=== PATIENT | female | born 1990 | race Caucasian/White ===

== ENCOUNTER → 2018-01-18 09:18 | Outpatient (CLI) | payer OTHER, SELFPAY ==
[2018-01-18 11:00] LABS: Hematocrit 37.7 % (37-47); Hemoglobin 12.9 g/dl (12.0-15.0); Mean Corp Hgb Conc 34.2 g/gl (32-36); Mean Corpuscular Hgb 33.8 pg (27.0-32.0); Mean Corpuscular Volume 98.7 fL (81-99); Mean Platelet Vol. 11.2 fl (6.2-12.0); Platelet Count 169 K/mm3 (150-450); RBC Distribution Width CV 12.9 % (11.6-14.6); RBC Distribution Width SD 45.1 fl (35.1-43.9); Red Blood Count 3.82 M/mm3 (4.2-5.4); Scan Indicated on CBC? Y/N NO; White Blood Count 8.8 K/mm3 (4.4-11.0)
[2018-01-18 11:07] LABS: Glucose Challenge Gest 1H 50g 66 mg/dL (70-140)
== END ==
PROVIDERS: Visit Provider Obstetrics & Gynecology
DX: Z34.83 Encounter for supervision of other normal pregnancy, third trimester (principal); Z3A.00 Weeks of gestation of pregnancy not specified
CPT/HCPCS: 36415; 82950; 85027

== ENCOUNTER → 2018-03-15 09:50 | Outpatient (CLI) | payer OTHER, SELFPAY ==
[2018-03-15 12:34] LABS: Group B Strep DNA By PCR Negative (Negative); Internal Control PASS; Probe Check PASS; Specimen Processing Control PASS
== END ==
PROVIDERS: Visit Provider Obstetrics & Gynecology
DX: Z36.85 Encounter for antenatal screening for Streptococcus B (principal)
CPT/HCPCS: 87081; 87653

== ENCOUNTER 2018-03-29 10:25 | Outpatient (CLI) | payer OTHER, SELFPAY ==
[2018-03-29 10:33] VITALS: BMI 29.0
--- NOTE | 2018-03-29 19:00 | OB.TRI.NOTE ---
History of Present Illness Date of Service: 03/29/18 Was patient seen by the physician?: No Reason For Visit: NST Date of Service: 03/29/18 Final CLARK: 04/11/18 Final CLARK Source: US <20 weeks Gestational age: 39 Weeks and 1 Days History of Present Illness: 27yo G1 @ 38wga sent from office for scheduled NST for tachycardia. Home Medications Medication Instructions Recorded Vits [Prenatabs FA] 1 tablet PO DAILY 03/29/18 Allergies Sulfa (Sulfonamide Antibiotics) Allergy (Verified 03/29/18 10:34) Hives NST - FHR Rate Baby A Baseline: 145 Variability:: Moderate Accelerations:: 15 x 15 Decelerations:: None NST Reactive:: Yes FHR Category:: Category I Uterine Activity:: 2-3/10 min Impression/Plan 27yo G1 @ 38wga with reactive NST, Cat I FHR - tachycardia resolved. -d/c home
== END 2018-03-29 11:20 | disposition home or self-care (01) ==
LOC: WPOUT 10:29 → WP 10:30
PROVIDERS: Visit Provider Obstetrics & Gynecology
DX: O76 Abnormality in fetal heart rate and rhythm complicating labor and delivery (principal); Z3A.38 38 weeks gestation of pregnancy
CPT/HCPCS: 59025; 59050; 99218; G0378

== ENCOUNTER 2018-04-10 07:29 | Inpatient (IN) | payer OTHER, SELFPAY ==
[2018-04-10 07:19] VITALS: BMI 29.7
[2018-04-10 07:28] LABS: ROM Internal Control Test YES-OK TO RESULT pt. (Internal QC); ROM Patient Test POSITIVE (Negative)
[2018-04-10] MEDS: Lactated Ringers 1,000 ML 50 ML IV ×2 (07:55→13:18)
[2018-04-10 08:17] LABS: Hemoglobin 13.5 g/dl (12.0-15.0); Mean Corp Hgb Conc 34.6 g/gl (32-36); Mean Corpuscular Hgb 32.8 pg (27.0-32.0); Mean Corpuscular Volume 94.7 fL (81-99); Mean Platelet Vol. 11.4 fl (6.2-12.0); Platelet Count 205 K/mm3 (150-450); RBC Distribution Width CV 12.6 % (11.6-14.6); RBC Distribution Width SD 42.2 fl (35.1-43.9); Red Blood Count 4.12 M/mm3 (4.2-5.4)
[2018-04-10 08:19] LABS: Scan Indicated on CBC? Y/N NO
[2018-04-10] MEDS: Acetaminophen 325 MG Tablet PO (09:29)
[2018-04-10] MEDS: Ondansetron 4 MG/2 ML Vial IV (12:12)
--- NOTE | 2018-04-10 16:38 | PCM.PN.OB ---
Subjective: Uncomfortable with contractions. Objective: Afeb VSS. FHR tracing Cat 1. - Physical Exam General: Alert, Oriented x3, Cooperative, No apparent distress Abdomen: Gravid, Appropriate for Gestational Age Psych/Mental Status: Normal Affect Comment: CE lip Weight: 185 lb Body Mass Index (BMI) 29.7 Intake and Output for Last 24 Hours 04/08/18 04/09/18 04/10/18 23:59 23:59 23:59 Output Total 300 / 300 Balance -300 / -300 Laboratory Tests Past 24 Hrs 04/10/18 04/10/18 04/10/18 07:03 07:55 07:55 WBC 10.0 RBC 4.12 L Hgb 13.5 Hct 39.0 MCV 94.7 MCH 32.8 H MCHC 34.6 RDW 12.6 RDW Differential 42.2 Plt Count 205 MPV 11.4 Vag Amniotic Fld Detect POSITIVE H Blood Type A POSITIVE Antibody Screen NEGATIVE Medical Necessity - Tobacco Use Smoking Status: Never smoker Assessment/Plan Progressing in labor. Anticipate pushing soon. Cat 1 FHR tracing
[2018-04-10] MEDS: Mag Hydrox/Al Hydrox/Simeth 30 ML UDC PO (17:30)
[2018-04-10] MEDS: Oxytocin 30 units/NS 500 ml 30 UNITS/500 ML IV.SOLN 167 UNITS IV (18:07)
--- NOTE | 2018-04-10 18:30 | PCM.OB.VAG ---
Vaginal Delivery Maternal Presentation: Active Labor, Spontaneous Rupture of Membranes presents at 39w6d ega with SROM and contractions Amniotic Membrane Rupture Type: Spontaneous Rupture of Membrane time: 0500 Amniotic Fluid Description: Clear Final CLARK: 04/11/18 Final CLARK Source: US <20 weeks Gestational age: 39 Weeks and 6 Days Date of Procedure: 04/10/18 Pre-Operative Diagnosis: Labor Post-Operative Diagnosis: same Surgery/ Procedure Performed: Spontaneous Vaginal Delivery Type of Anesthesia: None Description of Procedure: Emeli progressed throughout the day to FD then pushed for about 2 hours to deliver a live female over an intact perineum. There was a tight nuchal cord that required clamping and cutting prior to delivery of the shoulders. The nose and mouth were suctioned at delivery. Pediatrics was called due to poor cry but baby had good HR and O2 saturations. The placenta was delivered spontaneously intact with a centrally located 3VC. The uterus contracted well. The vagina, cervix, and perineum were intact. Presentation: Vertex Placental Delivery Description: Spontaneous Placenta Disposition: [facility] Percentage of Placenta Abruption: 0 Cord Vessel Description: 3 Vessels Nuchal Cord Compression: With compression Cord Entanglement: Around neck x 1, tight Estimated Blood Loss: 400cc A gender: Female (1 minute): 4 (5 minute): 7 Episiotomy Description: None Laceration: None Medications given after delivery: IV Pitocin Complications: None
--- NOTE | 2018-04-10 18:43 | DCINST_ITS ---
Discharge Diet: No Restrictions Discharge Activity: Return to Normal Activity, May Drive, May Shower Return to work on:: 06/10/18 May shower in (days): 0 May resume sexual activity in: 4-6 weeks Call your doctor if your incision/area has: Sudden Increased Bleeding, Increased Pain/ Swelling, Foul Smelling Discharge Call your doctor if you observe: Fever of 101 or Higher, Inability to urinate, Inability to have a bowel movement, Using more than one pad per hour, Shortness of breath, Chest pain, Calf discomfort, Uncontrolled pain Cleanse incision/area with: Soap & Water Additional Instructions: If you experience any of the following, contact your healthcare provider. * Bleeding that soaks a pad every hour for 2 hours * Fever 100.4 or higher * Unrelieved incision or abdominal pain * Swelling, redness, discharge or bleeding from your incision or episiotomy site * Your incision begins to separate * Problems urinating (including inability to urinate or burning while urinating) . * Visual changes * Severe headache * Flu-like symptoms * Pain or redness in one of both of your breasts * Pain, warmth, tenderness or swelling in your legs, especially the calf area * Frequent nausea and vomiting * Symptoms of depression or anxiety If you experience any of the following, call 911 or go to the nearest Emergency Room. * Chest pain * Problems breathing * Seizure activity * Partial or complete paralysis of a body part, slurred speech, weakness or drooping of the face, or a sudden inability to walk or hold your balance Allergies/Adverse Reactions: Allergies Sulfa (Sulfonamide Antibiotics) Allergy (Verified 04/10/18 07:23) Hives Medications to take at Discharge Vits [Prenatabs FA ] 1 tablet PO DAILY 03/29/18 Ibuprofen [Ibu] 600 mg PO Q6H PRN PRN #30 tab 04/10/18 The following prescriptions were given: Ibuprofen [Ibu] 600 mg PO Q6H PRN PRN #30 tab PRN Reason: pain or cramping Please Follow Up With: Silvia Ricketts MD When: 6 weeks Primary Care Physician: Care Physician,No Primary [Primary Care Provider] - Proposed Discharge Date: 04/12/18
[2018-04-10] MEDS: Acetaminophen 500 MG Tablet 1000 MG PO (19:02)
[2018-04-10] MEDS: Methylergonovine 0.2 MG/ML Ampul IM (19:18)
[2018-04-11 00:13] VITALS: BP 117/73; PULSE 89; RESP 16; TEMP 36.7; O2SAT 95
[2018-04-11] MEDS: Ibuprofen 600 MG Tablet PO ×3 (00:15→20:40)
[2018-04-11] MEDS: 0.9% Saline Lock 10 ML Syringe IV (00:15)
[2018-04-11 04:13] VITALS: BP 102/55; PULSE 77; RESP 18; TEMP 36.6; O2SAT 95
[2018-04-11 06:03] LABS: Mean Corp Hgb Conc 34.4 g/gl (32-36); Mean Corpuscular Hgb 32.4 pg (27.0-32.0); Mean Corpuscular Volume 94.4 fL (81-99); Platelet Count 181 K/mm3 (150-450); RBC Distribution Width SD 44.2 fl (35.1-43.9); Red Blood Count 3.39 M/mm3 (4.2-5.4); White Blood Count 14.9 K/mm3 (4.4-11.0)
[2018-04-11 06:04] LABS: Scan Indicated on CBC? Y/N NO
--- NOTE | 2018-04-11 08:11 | PCM.PN.OB ---
Subjective: Breast feeding. Bleeding light. Fatigued. Objective: Afeb VSS Hgb stable - Physical Exam General: Alert, Oriented x3, Cooperative, No apparent distress Lungs: Clear to auscultation, Normal air movement Cardiovascular: Regular rate, Regular Rhythm Abdomen: Soft, Non Tender, Non-Distended, - - Fundus firm nontender Extremities: No edema Skin: No rashes Psych/Mental Status: Normal Affect Comment: Lochia light Vital Signs Temp Pulse Resp BP Pulse Ox 97.9 F 77 18 102/55 L 95 04/11/18 04:13 04/11/18 04:13 04/11/18 04:13 04/11/18 04:13 04/11/18 04:13 Oxygen Delivery Method Room Air Weight: 185 lb Body Mass Index (BMI) 29.7 Intake and Output for Last 24 Hours 04/09/18 04/10/18 04/11/18 23:59 23:59 23:59 Intake Total 1345 / 1345 Output Total 700 / 700 250 / 250 Balance 645 / 645 -250 / -250 Laboratory Tests Past 24 Hrs 04/10/18 04/10/18 04/11/18 07:55 07:55 05:50 WBC 10.0 14.9 H RBC 4.12 L 3.39 L Hgb 13.5 11.0 L Hct 39.0 32.0 L MCV 94.7 94.4 MCH 32.8 H 32.4 H MCHC 34.6 34.4 RDW 12.6 13.0 RDW Differential 42.2 44.2 H Plt Count 205 181 MPV 11.4 11.0 Blood Type A POSITIVE Antibody Screen NEGATIVE Medical Necessity - Tobacco Use Smoking Status: Never smoker Assessment/Plan Doing well on PP day#1. continue routine PP care.
[2018-04-11 10:00] VITALS: BP 105/55; PULSE 66; RESP 16; TEMP 36.7; O2SAT 98
[2018-04-11 14:00] VITALS: BP 99/57; PULSE 95; RESP 16; TEMP 37.1; O2SAT 99
[2018-04-11] MEDS: Prenatal Vits Tablet 1 TABLET PO (14:13)
[2018-04-11 20:29] VITALS: BP 105/60; PULSE 88; RESP 18; TEMP 36.7; O2SAT 96
[2018-04-11] MEDS: Senna/Docusate Sodium 1 Tablet PO (22:03)
[2018-04-12 01:49] VITALS: BP 104/59; PULSE 85; RESP 16; TEMP 36.6; O2SAT 97
[2018-04-12] MEDS: Acetaminophen 500 MG Tablet 1000 MG PO (02:01)
--- NOTE | 2018-04-12 06:56 | PCM.PN.OB ---
Subjective: No speicifc complaints. Bleeding light. Objective: Afeb VSS - Physical Exam General: Alert, Oriented x3, Cooperative, No apparent distress Lungs: Clear to auscultation, Normal air movement Cardiovascular: Regular rate, Regular Rhythm Abdomen: Soft, Non Tender, Non-Distended, - - Fundus firm nontender Extremities: No edema Skin: No rashes Neurological: Neuro grossly intact Psych/Mental Status: Normal Affect Comment: Lochia light Vital Signs Temp Pulse Resp BP Pulse Ox 97.9 F 85 16 104/59 L 97 04/12/18 01:49 04/12/18 01:49 04/12/18 01:49 04/12/18 01:49 04/12/18 01:49 Oxygen Delivery Method Room Air Weight: 185 lb Body Mass Index (BMI) 29.7 Intake and Output for Last 24 Hours 04/10/18 04/11/18 04/12/18 23:59 23:59 23:59 Intake Total 1345 / 1345 Output Total 700 / 700 250 / 250 Balance 645 / 645 -250 / -250 Medical Necessity - Tobacco Use Smoking Status: Never smoker Assessment/Plan Doing well on PP day#2. Cleared for discharge home today. Home going instructions and warnings given.
--- NOTE | 2018-04-12 06:58 | PCM.DC.SUM ---
Discharge Date and Diagnosis Date of Admission: 04/10/18 Date of Discharge: 04/12/18 - Primary Discharge Diagnosis s/p Hospital Course and Treatment Consultations 04/10/18 07:40 Consult: Anesthesia Routine Comment: Reason For Exam: LABOR Operations: None Procedures: - - Summary of Care Provided: The patient is a 27 year old F [admitted in active labor with SROM. Progressed to FD then pushed to deliver a live without complication. Post course unremarkable. Discharged home on PP day#2.] Discharge Diet: No Restrictions Discharge Activity: Return to Normal Activity, May Drive, May Shower Return to work on:: 06/10/18 May shower in (days): 0 May resume sexual activity in: 4-6 weeks Call your doctor if your incision/area has: Sudden Increased Bleeding, Increased Pain/ Swelling, Foul Smelling Discharge Call your doctor if you observe: Fever of 101 or Higher, Inability to urinate, Inability to have a bowel movement, Using more than one pad per hour, Shortness of breath, Chest pain, Calf discomfort, Uncontrolled pain Cleanse incision/area with: Soap & Water Home Medications: Medications to take at Discharge Vits [Prenatabs FA ] 1 tablet PO DAILY 03/29/18 Ibuprofen [Ibu] 600 mg PO Q6H PRN PRN #30 tab 04/10/18 Following Prescrptions Were Given to Patient: Ibuprofen [Ibu] 600 mg PO Q6H PRN PRN #30 tab PRN Reason: pain or cramping Primary Care Physician: Care Physician,No Primary [Primary Care Provider] - Please Follow Up With: Silvia Ricketts MD When: 6 weeks Disposition: Home Minutes spent on discharge:: 15 Patient Condition:: Good Medical Necessity - Tobacco Use Smoking Status: Never smoker Meaningful Use Info Meaningful Use Diagnoses (Choose all that apply): None applicable
[2018-04-12] MEDS: Ibuprofen 600 MG Tablet PO (08:01)
[2018-04-12] MEDS: Senna/Docusate Sodium 1 Tablet PO (08:01)
[2018-04-12] MEDS: Prenatal Vits Tablet 1 TABLET PO (08:01)
[2018-04-12 10:00] VITALS: BP 106/73; PULSE 89; RESP 16; TEMP 36.6
[2018-04-12 15:00] VITALS: BP 116/77; PULSE 113; RESP 18; TEMP 37.3
== END 2018-04-12 15:00 | disposition home or self-care (01) | DRG 775 ==
LOC: WPOUT 07:32 → WP 18:09
PROVIDERS: Admitting Provider Obstetrics & Gynecology; Visit Provider Obstetrics & Gynecology
DX: O69.1XX0 Labor and delivery complicated by cord around neck, with compression, not applicable or unspecified (principal); K21.9 Gastro-esophageal reflux disease without esophagitis; Z3A.39 39 weeks gestation of pregnancy; Z37.0 Single live birth
CPT/HCPCS: 59025; 59050; 84112; 85027; 86850; 86900; 99218; J7120; A4216; G0378; J2405

== ENCOUNTER 2018-04-14 18:35 | Outpatient (CLI) | payer OTHER, SELFPAY | END 2018-04-14 19:40 | disposition home or self-care (01) | LOC: WPOUT 18:50 → WP 18:52 | PROVIDERS: Visit Provider Obstetrics & Gynecology | DX: Z39.1 Encounter for care and examination of lactating mother (principal) ==

== ENCOUNTER → 2018-05-25 15:46 | Outpatient (CLI) | payer OTHER, SELFPAY ==
[2018-06-03 17:13] LABS: HPV APTIMA, High Risk Positive (Negative); HPV Reflexed? YES, CHARGE PATIENT
== END ==
PROVIDERS: Visit Provider Obstetrics & Gynecology
DX: R87.612 Low grade squamous intraepithelial lesion on cytologic smear of cervix (LGSIL) (principal)
CPT/HCPCS: 87624; 88175; G0145

== ENCOUNTER → 2018-06-18 16:45 | Outpatient (CLI) | payer OTHER, SELFPAY ==
--- NOTE | 2018-06-18 | IMM_PTH ---
PATIENT: ZACH ARAGON LOC: [facility] U#:[id number] AGE/SX: 35/F ROOM: RE06/18/[address]: Dr. Silvia Boyce MD : 1990 BED: DIS: SPEC #: [id number] RECD: 06/22/18 14:07 STATUS: VALENTINE REHarley #: [id number] KIRNA: 06/18/18 00:[address]: Silvia Perez DEPT: IMMUNOHISTOCHEMISTRY RECD BY: Yuki Gilmore Tissues: A - Uterine cervix, NOS Procedures: p16 (initial) KI-67 (add) PHYSICIAN & INSTITUTION [place] [id number] SPECIMEN INFORMATION: Tissue Source: A ? Cervical biopsy 6 o?clock Clinical Info: ASCUS, positive HR/HPV Specimen Number: [id number] CPT code: 88409, 42935 METHODOLOGY: Deparaffinized sections of prefer/formalin-fixed tissue or PAP/DQ stained slides are incubated with monoclonal/polyclonal antibodies/oligonucleotide probes. Localization is made via biotin free immunoperoxidase method. Appropriate controls are performed and reacted as expected. Results on target cell population are indicated in the following table: RESULTS: ANTIBODY / CLONE RESULT Block A P16 (E6H4) positive, patchy Ki-67 (30-9) positive, low These tests were developed and their performance characteristics determined by [facility]. They may not have been cleared or approved by the U.S. Food and Drug Administration. The FDA has determined that such clearance or approval is not necessary. INTERPRETATION: A. Cervix, 6 o?clock, biopsy: Mild squamous dysplasia. SJ:yobani 06/23/18
--- NOTE | 2018-06-18 | CER_PTH ---
PATIENT: ZAHC ARAGON LOC: [facility]#:[id number] AGE/SX: 35/F ROOM: RE06/18/[address]: Dr. Silvia Boyce MD : 1990 BED: DIS: SPEC #: [id number] RECD: 06/18/18 17:20 STATUS: VALENTINE JUAN #: [id number] KIRAN: 06/18/18 00:[address]: Silvia Perez DEPT: SURGICAL PATHOLOGY RECD BY: Farrah Fuller Tissues: A - Uterine cervix, NOS B - Uterine cervix, NOS C - Endocervical Procedures: Surgery Specimen Level IV HEADER OPERATION: Colposcopy PRE-OP DIAGNOSIS: LMP 06/06/18; 05/26/18 ASCUS, positive HR/HPV TISSUE SUBMITTED: A ? Cervical biopsy 6 o?clock, B - Cervical biopsy 3 o?clock, C - ECC MICROSCOPIC DIAGNOSIS A. 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 See comment. B. Cervix, 3 o?clock, biopsy: Fragment of benign endocervical mucosa and mucous. See comment. C. ECC: Scant fragments of benign endocervical epithelial cells and mucous, negative for dysplasia. Fragments of proliferative endometrium. SJ:rg 06/22/18 COMMENT A. Immunohistochemistry ([id number]) for surrogate HPV marker (p16) supports the above diagnosis. B. Transitional zone mucosa is not seen in the submitted specimen. MICROSCOPIC DESCRIPTION Slides are reviewed. GROSS DESCRIPTION A - Received in fixative is one container labeled with the patient's name and designated cervical biopsy 6 o'clock. The specimen consists of two irregular fragments of light hylton soft tissue that in aggregate measure 0.5 x 0.3 x 0.1 cm. The specimen is totally submitted in one cassette. B - Received in fixative is one container labeled with the patient's name and designated cervical biopsy 3 o'clock. The specimen consists of one irregular fragment of hylton soft tissue that measures 0.3 x 0.3 x 0.1 cm. Also present in the container are multiple fragments of mucoid tissue measuring in aggregate 0.5 x 0.5 x 0.1 cm. The specimen is totally submitted in one cassette. C - Received in fixative is one container labeled with the patient's name and designated ECC. The specimen consists of multiple fragments of hemorrhagic mucoid tissue that in aggregate measure 2 x 1.5 x 0.2 cm. The specimen is totally submitted in one cassette. / SJ:rg 06/21/18 TC:5 CPT: 66024 x3
== END ==
PROVIDERS: Visit Provider Obstetrics & Gynecology
DX: R87.610 Atypical squamous cells of undetermined significance on cytologic smear of cervix (ASC-US) (principal)
CPT/HCPCS: 88305; 88341; 88342

== ENCOUNTER → 2019-07-01 11:06 | Outpatient (CLI) | payer OTHER, SELFPAY ==
[2019-07-01 14:03] LABS: Chlamydia Trachomatis by PCR Negative (Negative); Neisserai gonorrhoeae by PCR Negative (Negative); Probe Check PASS; Sample Adequacy Control PASS; Specimen Processing Control PASS
== END ==
PROVIDERS: Visit Provider Obstetrics & Gynecology
DX: Z12.4 Encounter for screening for malignant neoplasm of cervix (principal); Z11.3 Encounter for screening for infections with a predominantly sexual mode of transmission; Z32.01 Encounter for pregnancy test, result positive
CPT/HCPCS: 87491; 87591; 88175; G0145

== ENCOUNTER → 2019-08-03 14:34 | Outpatient (CLI) | payer OTHER, SELFPAY ==
[2019-08-03 15:43] LABS: Absolute Lymphocyte Count 2.31 X10^3/uL (0.83-4.51); Absolute Neutrophil Count 5.1 X10^3/uL (2.0-7.7); Basophil# 0.03 X10^3/uL; Basophil% 0.4 % (0-1); Eosinophil# 0.09 X10^3/uL; Eosinophils% 1.1 % (0-5); Hematocrit 38.6 % (37-47); Hemoglobin 13.2 g/dL (12.0-15.0); Lymphocyte # 2.31 X10^3/ul (4.0); Lymphocyte % 27.8 % (19-41); Mean Corp Hgb Conc 34.2 g/dL (32-36); Mean Corpuscular Hgb 31.4 pg (27.0-32.0); Mean Corpuscular Volume 91.9 fL (81-99); Mean Platelet Vol. 11.3 fl (6.2-12.0); Monocyte# 0.73 X10^3/uL; Monocyte% 8.8 % (0-10); NRBC Flagged by Analyzer 0 % (0-5); Neutrophil # 5.09 X10^3/uL (2.7-7.7); Neutrophil % 61.3 % (47-70); Platelet Count 168 K/mm3 (150-450); RBC Distribution Width CV 13.1 % (11.6-14.6); RBC Distribution Width SD 43.3 fl (35.1-43.9); White Blood Count 8.3 K/mm3 (4.4-11.0)
[2019-08-03 15:46] LABS: Color, Urine Yellow (Yellow); Glucose, Dipstick Normal (Normal); Ketone-Dipstick Negative (Negative); Leukocyte Esterase-Dipstick Negative /ul (Negative); Nitrite-Dipstick Negative (Negative); Occult Blood-Urine Negative /ul (Negative); Protein-Dipstick Negative (Negative); Urine Bilirubin Dipstick Negative (Negative); Urine Clarity Clear (Clear); Urine Urobilinogen Normal (Normal); Urine pH 6.5 (5.0 - 8.0)
[2019-08-03 16:05] LABS: Thyroid Stim Hormone (TSH) 1.34 uIU/mL (0.358-3.74)
[2019-08-03 16:07] LABS: Amphetamine Urine VISTA NEGATIVE (<1000 ng/mL); Barbiturate Urine VISTA NEGATIVE (< 200 ng/mL); Benzodiazepine Urine VISTA NEGATIVE (< 200 ng/mL); Cocaine Urine VISTA NEGATIVE (< 300 ng/mL); Ecstacy Urine VISTA NEGATIVE (< 500 ng/mL); Methadone Urine VISTA NEGATIVE (< 300 ng/mL); PCP Urine VISTA NEGATIVE (< 25 ng/mL); THC Urine VISTA NEGATIVE (< 50 ng/mL); Vista UDS pH Range 6
[2019-08-04 10:54] LABS: HIV - WCH Non-Reactive (Nonreactive); Hepatitis B Surface Antigen Non-Reactive (Nonreactive); Hepatitis C Antibody Non-Reactive (Nonreactive); Rubella IgG 102.1 IU/mL; Vitamin D,25 Hydroxy 25.6 ng/mL (29.95-100.01)
[2019-08-05 02:06] LABS: Prenatal RPR NONREACTIVE (NONREACTIVE)
== END ==
PROVIDERS: Visit Provider Obstetrics & Gynecology
DX: Z34.81 Encounter for supervision of other normal pregnancy, first trimester (principal)
CPT/HCPCS: 36415; 80307; 81002; 82306; 84443; 85025; 86703; 86762; 86803; 87340

== ENCOUNTER → 2019-11-29 10:06 | Outpatient (CLI) | payer OTHER, SELFPAY ==
[2019-11-29 12:11] LABS: Hematocrit 38.4 % (37-47); Hemoglobin 12.7 g/dL (12.0-15.0); Mean Corp Hgb Conc 33.1 g/dL (32-36); Mean Corpuscular Hgb 30.9 pg (27.0-32.0); Mean Corpuscular Volume 93.4 fL (81-99); Mean Platelet Vol. 11.1 fl (6.2-12.0); Platelet Count 227 K/mm3 (150-450); RBC Distribution Width CV 12.4 % (11.6-14.6); RBC Distribution Width SD 42.8 fl (35.1-43.9); Red Blood Count 4.11 M/mm3 (4.2-5.4); White Blood Count 9.3 K/mm3 (4.4-11.0)
[2019-11-29 12:28] LABS: Glucose Challenge Gest 1H 50g 77 mg/dL (70-140)
[2019-11-29 12:43] LABS: Vitamin D,25 Hydroxy 33.3 ng/mL (29.95-100.01)
== END ==
PROVIDERS: Visit Provider Obstetrics & Gynecology
DX: Z34.83 Encounter for supervision of other normal pregnancy, third trimester (principal)
CPT/HCPCS: 36415; 82306; 82950; 85027

== ENCOUNTER → 2020-01-27 15:40 | Outpatient (CLI) | payer OTHER, SELFPAY | PROVIDERS: Visit Provider Obstetrics & Gynecology | DX: Z36.85 Encounter for antenatal screening for Streptococcus B (principal) | CPT/HCPCS: 87081 ==

== ENCOUNTER 2020-02-26 07:25 | Inpatient (IN) | payer OTHER, SELFPAY ==
[2020-02-26] VITALS (21 sets, daily range): BP systolic 110–140; BP diastolic 64–91; PULSE 73–96; RESP 16; TEMP 36.2–37.3; O2SAT 97; BMI 29.9
[2020-02-26] MEDS: Lactated Ringers 1,000 ML 50 ML IV (08:00)
[2020-02-26 08:16] LABS: Absolute Lymphocyte Count 2.34 X10^3/uL (0.83-4.51); Absolute Neutrophil Count 5.7 X10^3/uL (2.0-7.7); Basophil# 0.02 X10^3/uL; Basophil% 0.2 % (0-1); Eosinophil# 0.14 X10^3/uL; Eosinophils% 1.5 % (0-5); Hematocrit 35.5 % (37-47); Lymphocyte # 2.34 X10^3/ul (4.0); Lymphocyte % 25.4 % (19-41); Mean Corp Hgb Conc 33.8 g/dL (32-36); Mean Corpuscular Hgb 29.4 pg (27.0-32.0); Mean Platelet Vol. 11.8 fl (6.2-12.0); Monocyte# 0.98 X10^3/uL; Monocyte% 10.6 % (0-10); NRBC Flagged by Analyzer 0 % (0-5); Neutrophil # 5.68 X10^3/uL (2.7-7.7); Neutrophil % 61.8 % (47-70); Platelet Count 205 K/mm3 (150-450); RBC Distribution Width CV 13.7 % (11.6-14.6); RBC Distribution Width SD 42.4 fl (35.1-43.9); Red Blood Count 4.08 M/mm3 (4.2-5.4); White Blood Count 9.2 K/mm3 (4.4-11.0)
[2020-02-26] MEDS: Mag Hydrox/Al Hydrox/Simeth 30 ML UDC PO (08:48)
--- NOTE | 2020-02-26 08:57 | PCM.HP.OB ---
- Problem List (1) 41 weeks gestation of Status: Acute History Date of Admission: 02/26/20 Final CLARK: 02/19/20 Final CLARK Source: US <20 weeks Gestational age: 41 Weeks and 0 Days History of this : This is a 29 year-old, G [], P [], at 41 weeks gestational age. Allergies Sulfa (Sulfonamide Antibiotics) Allergy (Verified 02/26/20 07:41) Hives Home Medications: Home Medications Vits [Prenatabs FA ] 1 tablet PO DAILY 03/29/18 Cholecalciferol (VIT D3) [Vitamin D] 1,000 unit PO DAILY 02/26/20 Smoking Status: Never smoker Alcohol: None Number of Fetus(es): 1 NST - FHR Rate Baby A Baseline: 130 Variability:: Moderate Accelerations:: 15 x 15 Decelerations:: None NST Reactive:: Yes FHR Category:: Category I Uterine Activity:: Q2-5 irregular History Past Pregnancies: PRIOR DELIVERY HISTORY DEL DATE GEST LAB WT LB WT OZ TYPE ANES LABOR TX April 16 39 13 8 9 Vag Nitrous No 27 Dec 16 8 0 0 0 Vag None No Expected Infant Delivery Method: Spontaneous Vaginal Number of Visits: 12 Review of Systems Constitutional: Denies: Chills, Fever, Weight Change HEENT: Denies: Head Aches, Sinus Congestion, Sinus Drainage Cardiovascular: Denies: Chest Pain, Palpitations Respiratory: Denies: Cough, Shortness of breath at rest, Sputum production Gastrointestinal: Denies: Abdominal Pain, Nausea, Vomiting Genitourinary: Denies: Dysuria Musculoskeletal: Denies: Joint Pain, Joint Tenderness Skin: Denies: Rash, Wounds Neurological: Denies: Numbness, Tingling, Focal weakness Psychiatric: Denies: Anxiety, Depression, Homicidal Ideations, Suicidal Ideations Hematologic/ Lymphatic: Denies: Easy Bruising, Easy Bleeding Physical Exam Vitals: Vital Signs Temp Pulse BP Pulse Ox 98.2 F 96 123/72 H 97 02/26/20 08:32 02/26/20 08:32 02/26/20 08:32 02/26/20 08:31 General: Alert, Oriented x3, No apparent distress HEENT: Atraumatic, Normocephalic. Negative for: Thyromegaly, Lymphadenopathy Cardiovascular: Regular rate, Regular Rhythm Lungs: Clear to auscultation Abdomen: Bowel Sounds Present, Gravid Neurological: Deep Tendon Reflexes 2+/4 and Symmetrical, Neuro grossly intact TAG MACHINE OPERATOR: Normal external genitalia. Negative for: Vulvar lesions Estimated gestational size: Appropriate for gestational size Presentation: Cephalic Cervix Dilation (cm): 6 Station: -1 Effacement (%): 75 Assessment/Plan All Active Problems 41 weeks gestation of (Acute) A: This is a 29 year-old, G [3], P [1], at 41 weeks gestational age. IOL for postdates SVE /-1 soft, stretchy, midposition with bulging bag AROM clear fluid 0836 NST category I with FHR baseline 130 UC 2-5 minutes with pain 7/10 P: Wanted Nitrous, but with it being unavailable she was educated on IV Fentanyl and epidural options vs natural labor After AROM, to recheck SVE in 4 hours. If no change will start Pitocin Expect
--- NOTE | 2020-02-26 12:52 | PCM.PN.OB ---
Patient Problems: Active and Suspected Problems 41 weeks gestation of (Acute) Subjective: Feeling okay. Pain is still 7/10 with peak of contractions. Reports contractions Q3-5 minutes while up, but in bed only feeling them 5-7 minutes. Objective: VSS. FHR baseline 130, +accels, -decels, moderate variability, Category I. At one point [place] monitor changed and maternal heart rates. SVE 8/90/-1 - Physical Exam Vitals/I&O's: Vital Signs Temp Pulse BP Pulse Ox 97.2 F L 93 131/82 H 97 02/26/20 12:51 02/26/20 12:51 02/26/20 12:51 02/26/20 08:31 Weight: 84.368 kg Body Mass Index (BMI) 29.9 General: Alert, Oriented x3, Cooperative HEENT: Atraumatic, PERRLA, EOMI, Normocephalic Neck: Supple, No JVD, Negative Carotid Bruits Lungs: Clear to auscultation, Normal air movement Cardiovascular: Regular rate, No murmurs Abdomen: Bowel Sounds Present, Soft, Non Tender Extremities: No edema, Capillary Refill Less than 3 Seconds Skin: No rashes, No breakdown Musculoskeletal: No Tenderness to Palpation of Joints or Extremities Neurological: Cranial nerves II-XII grossly intact Psych/Mental Status: Normal Affect, Appropriate Laboratory Results 02/26/20 08:00: WBC 9.2, RBC 4.08 L, Hgb 12.0, Hct 35.5 L, MCV 87.0, MCH 29.4, MCHC 33.8, RDW Std Deviation 42.4, RDW Coeff of Isabell 13.7, Plt Count 205, MPV 11.8, Immature Gran % (Auto) 0.500, Neut % (Auto) 61.8, Lymph % (Auto) 25.4, [place] % (Auto) 10.6 H, Eos % (Auto) 1.5, Baso % (Auto) 0.2, Absolute Neuts (auto) 5.7, Absolute Lymphs (auto) 2.34, Nucleated RBC % 0 02/26/20 08:00: Blood Type A POSITIVE, Antibody Screen NEGATIVE Current Medications Acetaminophen (Tylenol) 325 - 650 mg PO Q4H PRN PRN PRN Reason: Pain Score 1-3/10 Al Hydroxide/Mg Hydroxide (Mylanta Ii) 15 - 30 ml PO Q4H PRN PRN PRN Reason: INDIGESTION Last Admin: 02/26/20 08:48 Dose: 30 ml Documented by: Citric Acid/Sodium Citrate (Bicitra) 30 ml PO X1 PRN PRN Reason: Section Fentanyl Citrate (Sublimaze (100mcg Ampule)) 25 - 50 mcg IV Q2H PRN PRN PRN Reason: Pain Score 4-10/10 Lactated Ringer's () 500 mls @ 999 mls/hr IV .Q31M PRN PRN Reason: Epidural Lactated Ringer's () 500 mls @ 999 mls/hr IV .Q31M PRN PRN Reason: Corrective Measures Lactated Ringer's () 1,000 mls @ 50 mls/hr IV .Q20H GRACIE Last Admin: 02/26/20 08:00 Dose: 50 mls/hr Documented by: Ondansetron HCl (Zofran) 4 mg IV Q4H PRN PRN PRN Reason: NAUSEA Prochlorperazine Edisylate (Compazine Iv) 10 mg IV Q6H PRN PRN PRN Reason: NAUSEA Sodium Chloride () 10 - 40 ml IV X1 PRN PRN Reason: SALINE FLUSH Medical Necessity - Tobacco Use Smoking Status: Never smoker Assessment/Plan All Active Problems 41 weeks gestation of (Acute) A: Active labor with irregular contraction pattern Making cervical change now /-1 FHR Category I AROM of forebag with clear fluid P: Continue to allow IOL with just AROM Will reassess in 2 hours for Pitocin if irregular contraction pattern continues and no cervical change Expect
--- NOTE | 2020-02-26 14:45 | PCM.PN.BLA ---
STROKE Vital Signs/Narrative: Vital Signs Temp Pulse BP 02/26/20 14:35 97.3 F L 81 122/79 H 02/26/20 13:27 97.3 F L 93 133/83 H 02/26/20 12:51 97.2 F L 93 131/82 H 02/26/20 11:38 97.2 F L 73 116/73
[2020-02-26] MEDS: Oxytocin 30 units/NS 500 ml 30 UNITS/500 ML IV.SOLN 334 UNITS IV (16:34)
--- NOTE | 2020-02-26 16:46 | OP.PCM_ITS ---
Problem List (1) 41 weeks gestation of Status: Acute Vaginal Delivery Maternal Presentation: Medically Indicated Induction - at 41wk Method of Induction: Amniotomy Medical Reason for Induction: Maternal Medical Condition: list: - 41.0wk Amniotic Membrane Rupture Type: Artificial Rupture of Membrane time: 0836 Amniotic Fluid Description: Clear Final CLARK: 02/19/20 Final CLARK Source: US <20 weeks Gestational age: 41 Weeks and 0 Days doctor who attended delivery (if requested by OB): Siena Harrison Date of Procedure: 02/26/20 Pre-Operative Diagnosis: IOL Post-Operative Diagnosis: S/P Surgery/ Procedure Performed: Spontaneous Vaginal Delivery Anesthesiologist: GRETCHEN Gillis CRNA Type of Anesthesia: None Description of Procedure: Patient had spontaneous urge to push and complete +1. Patient pushed well, but decels began with abnormal presentation felt. Couldn't rule out cord presentation with head at +2 station. Ceased pushing and called attending Dr. Kaufman to delivery. Air Compressor Operator called for standby. Assisted patient to pant breathe through contractions while heading to OR for a double setup. Staff in place upon Dr. Kaufman's arrival to OR. With one maternal push, infant face appeared in direct mentum anterior presentation. Dr. Kaufman able to assist patient in delivery of a male infant. was placed on the maternal abdomen and further attended by nursery personnel with bulb suction and stimulation. The cord was doubly clamped and cut by at 30 seconds of life. IV Pitocin started per protocol. First degree perineal laceration repaired by Dr. Kaufman with a 3.0 rapide. With gentle cord traction spontaneous delivery of placenta. Fundal massage given, firm and midline. On inspection placenta appeared to be fully intact with a three vessel cord. EBL 200. Sponge and needle count correct x2. Apgars 8/9. Placental Delivery Description: Spontaneous Placenta Disposition: [facility] Cord Vessel Description: 3 Vessels Cord Entanglement: None Estimated Blood Loss: 200 Infant A gender: Male (1 minute): 8 (5 minute): 9 Episiotomy Description: None Laceration: Midline, 1st degree - perineal
[2020-02-26] MEDS: Ibuprofen 600 MG Tablet PO (17:49)
[2020-02-26] MEDS: Methylergonovine 0.2 MG/ML Ampul IM (18:08)
[2020-02-27 04:00] VITALS: BP 129/80; PULSE 83; RESP 16; TEMP 37.2
[2020-02-27 08:00] VITALS: BP 116/82; PULSE 82; RESP 16; TEMP 36.6
[2020-02-27] MEDS: Senna/Docusate Sodium 1 Tablet PO (08:14)
--- NOTE | 2020-02-27 09:59 | DCINST_ITS ---
Discharge Diet: No Restrictions Discharge Activity: Return to Normal Activity, May not drive while taking narcotic pain medications., May Shower May resume sexual activity in: 4-6 weeks Additional Activity Instructions:: Nothing in the vagina for 4-6 weeks. You may return to work/school in 6 weeks. Call your doctor if your incision/area has: Continuous Slow Oozing, Sudden Increased Bleeding, Increased Pain/ Swelling, Increased Redness, Foul Smelling Discharge Additional Instructions: If you experience any of the following, contact your healthcare provider. * Bleeding that soaks a pad every hour for 2 hours * Fever 100.4 or higher * Unrelieved incision or abdominal pain * Swelling, redness, discharge or bleeding from your incision or episiotomy site * Your incision begins to separate * Problems urinating (including inability to urinate or burning while urinating). * Visual changes * Severe headache * Flu-like symptoms * Pain or redness in one of both of your breasts * Pain, warmth, tenderness or swelling in your legs, especially the calf area * Frequent nausea and vomiting * Symptoms of depression or anxiety If you experience any of the following, call 911 or go to the nearest Emergency Room. * Chest pain * Problems breathing * Seizure activity * Partial or complete paralysis of a body part, slurred speech, weakness or drooping of the face, or a sudden inability to walk or hold your balance Allergies/Adverse Reactions: Allergies Sulfa (Sulfonamide Antibiotics) Allergy (Verified 02/26/20 07:41) Hives Medications to take at Discharge Vits [Prenatabs FA ] 1 tablet PO DAILY 03/29/18 Cholecalciferol (VIT D3) [Vitamin D] 1,000 unit PO DAILY 02/26/20 Please Follow Up With: Jerri Phoenix CNM When: Call to make an appointment with your doctor in 6 weeks. If you have signs of depression call immediately for appointment. Primary Care Physician: Care Physician,No Primary [Primary Care Provider] - Test Results: Test results from this visit will be discussed in further detail at your follow- up appointment, if applicable.
--- NOTE | 2020-02-27 10:01 | PCM.PN.OB ---
Patient Problems: Active and Suspected Problems 41 weeks gestation of (Acute) Subjective: A little sore vaginally, but doing very well. Feeling good. Denies heavy bleeding. Reporting some minor issues with latching son for . Wants to see and discharge today. Objective: VSS. Fundus u/2, firm, midline. Lochia rubra moderate. - Physical Exam Vitals/I&O's: Vital Signs Temp Pulse Resp BP Pulse Ox 98 F 82 16 116/82 H 97 02/27/20 08:00 02/27/20 08:00 02/27/20 08:00 02/27/20 08:00 02/26/20 08:31 Weight: 84.368 kg Body Mass Index (BMI) 29.9 Intake and Output for Last 24 Hours 02/25/20 02/26/20 02/27/20 23:59 23:59 23:59 Intake Total 928.33 / 928.33 Balance 928.33 / 928.33 General: Alert, Oriented x3, Cooperative HEENT: Atraumatic, PERRLA, EOMI, Normocephalic Neck: Supple, No JVD, Negative Carotid Bruits Lungs: Clear to auscultation, Normal air movement Cardiovascular: Regular rate, No murmurs Abdomen: Bowel Sounds Present, Soft, Non Tender Extremities: No edema, Capillary Refill Less than 3 Seconds Skin: No rashes, No breakdown Musculoskeletal: No Tenderness to Palpation of Joints or Extremities Neurological: Cranial nerves II-XII grossly intact Psych/Mental Status: Normal Affect, Appropriate Laboratory Results 02/26/20 08:00: Blood Type A POSITIVE, Antibody Screen NEGATIVE Current Medications Acetaminophen (Tylenol) 1,000 mg PO Q8H PRN PRN PRN Reason: Pain Score 1-3/10 Bisacodyl (Dulcolax) 10 mg RECTAL UD PRN PRN Reason: If no BM Hydrocortisone (Hytone) 1 applic TOPICAL TID PRN PRN; Protocol PRN Reason: Discomfort Ibuprofen (Motrin) 600 mg PO Q6H PRN PRN PRN Reason: Pain Score 1-3/10 Last Admin: 02/26/20 17:49 Dose: 600 mg Documented by: Methylergonovine Maleate (Methergine) 0.2 mg IM X1 PRN PRN Reason: Excess bleeding/uterine atony Last Admin: 02/26/20 18:08 Dose: 0.2 mg Documented by: Ondansetron HCl (Zofran) 4 mg IV Q4H PRN PRN PRN Reason: Nausea Oxycodone HCl (Oxyir) 5 - 10 mg PO Q4H PRN PRN PRN Reason: Pain Score 4-10/10 Senna/Docusate Sodium (Senokot-S, Sahra-Colace) 1 - 2 tablet PO DAILY PRN PRN PRN Reason: Constipation Last Admin: 02/27/20 08:14 Dose: 2 tablet Documented by: Simethicone (Mylicon) 80 mg PO PCHS PRN PRN Reason: Indigestion/Stomach pain Sodium Chloride () 5 - 15 ml IV UD PRN PRN Reason: SALINE FLUSH Throat Lozenges (Dermoplast (Sp)) 1 applic TOPICAL 4X/DAY PRN PRN; Protocol PRN Reason: Pain/Inflammation Zolpidem Tartrate (Ambien (Generic)) 5 mg PO QHS PRN PRN PRN Reason: Insomnia Medical Necessity - Tobacco Use Smoking Status: Never smoker Assessment/Plan All Active Problems 41 weeks gestation of (Acute) A: Post vaginal delivery day #1 male son, will get circumcision today Perineal pain well controlled with Motrin and ice Normal involution and lochia Normal course P: Continue orders to see mother to help with latch To discharge today after 24 hours To call for 6wk appt or sooner for assistance
[2020-02-27 12:30] VITALS: BP 119/83; PULSE 92; RESP 16; TEMP 36.6
[2020-02-27 18:00] VITALS: BP 117/70; PULSE 95; RESP 16; TEMP 36.8
== END 2020-02-27 19:45 | disposition home or self-care (01) | DRG 807 ==
PROVIDERS: Admitting Provider Obstetrics & Gynecology; Visit Provider Obstetrics & Gynecology
DX: O48.0 Post-term pregnancy (principal); Z37.0 Single live birth; O70.0 First degree perineal laceration during delivery; Z3A.41 41 weeks gestation of pregnancy
CPT/HCPCS: 59025; 59050; 85025; 86850; 86900; 86901; 99218; J7120; G0378

== ENCOUNTER → 2020-04-11 | Outpatient (CLI) | payer OTHER, SELFPAY ==
[2020-02-26 07:33] VITALS: BMI 29.9
== END | disposition home or self-care (01) ==
PROVIDERS: Referring Provider Obstetrics & Gynecology; Visit Provider Obstetrics & Gynecology
DX: Z12.4 Encounter for screening for malignant neoplasm of cervix (principal)

== ENCOUNTER → 2021-04-01 08:08 | Outpatient (CLI) | payer OTHER, SELFPAY ==
[2020-02-26 07:33] VITALS: BMI 29.9
--- NOTE | 2021-04-01 08:09 | CT_ITS ---
STUDY: CT MAXILLOFACIAL SINUSES REASON FOR EXAM: Female, 30 years old. ANOSMIA RADIATION DOSAGE (If Supplied By Facility): CTDIvol = ( 33.06 ) mGy, DLP = ( 871.04 ) mGycm TECHNIQUE: The patient was scanned in a multi detector CT scanner. High resolution axial imaging was performed without the administration of intravenous contrast material. Sagittal and coronal images were reconstructed. Individualized dose optimization techniques were used for this CT. COMPARISON: None. FINDINGS: FRONTAL SINUSES: Normal aeration, without mucosal inflammatory disease. ETHMOIDAL SINUSES: Normal aeration, without mucosal inflammatory disease. MAXILLARY SINUSES: Normal aeration, without mucosal inflammatory disease. SPHENOIDAL SINUSES: Normal aeration, without mucosal inflammatory disease. There is patency of the bilateral maxillary infundibuli with normal uncinate processes, ethmoid bullae, and hiatus semilunaris. Normal bilateral middle turbinates. Normal bilateral inferior turbinates. There is a left sided nasal septal deviation with a left sided nasal septal spur. There is patency of the bilateral nasal airways. The visualized osseous structures are normal. The visualized bilateral orbital contents are normal. CT/Sinus/Facial Bone IMPRESSION: Nasal septal deviation with the left side with a left-sided nasal septal spur. Electronically Signed: Cem Reyes MD at 10:51 EDT , Service support ,
== END ==
PROVIDERS: Referring Provider Otolaryngology; Visit Provider Otolaryngology
DX: R43.0 Anosmia (principal)
CPT/HCPCS: 70486

== ENCOUNTER → 2021-10-30 09:37 | Outpatient (CLI) | payer OTHER, SELFPAY ==
--- NOTE | 2021-10-30 09:44 | RAD_ITS ---
STUDY: X-RAY - PELVIS REASON FOR EXAM: Female, 31 years old. PAIN TECHNIQUE: One view of the pelvis was obtained. COMPARISON: None. FINDINGS: There is a non-specific bowel gas pattern. Normal visualized soft tissue structures. Normal bilateral iliac wings, sacroiliac joints and visualized sacrum. Normal visualized bilateral superior and inferior pubic rami. Normal pubic symphysis. Normal ischial tuberosities. Normal visualized right femoral head. Normal right acetabulum. Normal right hip joint. Normal visualized left femoral head. Normal left acetabulum. Normal left hip joint. RAD/Pelvis 1 or 2 Views IMPRESSION: Normal x-ray examination of the pelvis. Electronically Signed: Jeronimo Perez MD at 16:52 EST , Service support ,
[2021-10-30 12:22] LABS: Erythrocyte Sedimentation Rate 8 mm/hr (0-30)
[2021-10-30 12:24] LABS: Absolute Lymphocyte Count 2.49 X10^3/uL (0.83-4.51); Absolute Neutrophil Count 5.5 X10^3/uL (2.0-7.7); Basophil# 0.04 X10^3/uL; Basophil% 0.5 % (0-1); Eosinophil# 0.05 X10^3/uL; Eosinophils% 0.6 % (0-5); Hematocrit 46.6 % (37-47); Hemoglobin 16.1 g/dL (12.0-15.0); Lymphocyte # 2.49 X10^3/ul (0.83-4.51); Lymphocyte % 28.3 % (19-41); Mean Corp Hgb Conc 34.5 g/dL (32-36); Mean Corpuscular Hgb 31.7 pg (27.0-32.0); Mean Corpuscular Volume 91.7 fL (81-99); Mean Platelet Vol. 11.5 fl (6.2-12.0); Monocyte# 0.71 X10^3/uL; Monocyte% 8.1 % (0-10); NRBC Flagged by Analyzer 0 % (0-5); Neutrophil # 5.48 X10^3/uL (2.7-7.7); Neutrophil % 62.2 % (47-70); Platelet Count 250 K/mm3 (150-450); RBC Distribution Width CV 12.2 % (11.6-14.6); RBC Distribution Width SD 40.9 fl (35.1-43.9); Red Blood Count 5.08 M/mm3 (4.2-5.4); White Blood Count 8.8 K/mm3 (4.4-11.0)
[2021-10-30 12:47] LABS: AST(SGOT) 17 U/L (15-37); Alanine Aminotransfer ALT/SGPT 33 U/L (13-56); Albumin, Serum 4.5 g/dL (3.2-5.0); Alkaline Phosphatase 61 U/L (45-117); Anion Gap 8 (5-15); BUN 13 mg/dL (7-18); CRP < 2.90 mg/L (0.0-3.0); Calcium,Total 9.7 mg/dL (8.5-10.1); Chloride 100 mmol/L (98-107); Creatinine, Serum 0.65 mg/dL (0.55-1.02); EST Glomerular Filtration Rate 112 mL/min (>60); Est Glom Filt Rate - Afr Amer 136 mL/min (>60); Globulin 4.3 g/dL (2.2-4.2); Glucose 73 mg/dL (74-106); Potassium 3.1 mmol/L (3.5-5.1); Protein, Total 8.8 g/dL (6.4-8.2); Rheumatoid Factor < 10.0 IU/mL (<15); Sodium Level 137 mmol/L (136-145)
[2021-10-30 13:17] LABS: Hepatitis B Surface Antibody Reactive; Hepatitis B Surface Antigen Non-Reactive (Nonreactive); Hepatitis C Antibody Non-Reactive (Nonreactive)
[2021-10-31 15:52] LABS: ANTINUCLEAR ANTIBODIES DIRECT Positive (Negative)
[2021-11-01 08:15] LABS: CCP IgG Antibodies 6 units (0-19)
== END ==
PROVIDERS: Referring Provider Internal Medicine Rheumatology; Visit Provider Internal Medicine Rheumatology
DX: L40.59 Other psoriatic arthropathy (principal); M21.41 Flat foot [pes planus] (acquired), right foot; Z87.81 Personal history of (healed) traumatic fracture
CPT/HCPCS: 36415; 72170; 80053; 85025; 85652; 86038; 86140; 86200; 86431; 86706; 86803; 87340

== ENCOUNTER → 2021-11-11 14:18 | Outpatient (CLI) | payer OTHER, SELFPAY ==
[2021-11-11 15:22] LABS: EXAGEN MAILED SPECIMEN
[2021-11-11 17:58] LABS: Color, Urine Yellow (Yellow); Glucose, Dipstick Normal (Normal); Ketone-Dipstick Negative (Negative); Leukocyte Esterase-Dipstick Negative /ul (Negative); Nitrite-Dipstick Negative (Negative); Occult Blood-Urine Negative /ul (Negative); Protein-Dipstick Negative (Negative); Urine Bilirubin Dipstick Negative (Negative); Urine Clarity Clear (Clear); Urine Urobilinogen Normal (Normal); Urine pH 6.5 (5.0 - 8.0)
[2021-11-11 18:40] LABS: Protein, Urine (Random) < 6.0 mg/dL (<11.9)
== END ==
PROVIDERS: Referring Provider Internal Medicine Rheumatology; Visit Provider Internal Medicine Rheumatology
DX: L40.59 Other psoriatic arthropathy (principal); R76.8 Other specified abnormal immunological findings in serum; M21.41 Flat foot [pes planus] (acquired), right foot; Z79.899 Other long term (current) drug therapy; Z87.81 Personal history of (healed) traumatic fracture
CPT/HCPCS: 81002; 82570; 84156

== ENCOUNTER 2022-01-06 14:16 | Outpatient (CLI) | payer BC, SELFPAY ==
[2022-01-06 17:46] LABS: Absolute Lymphocyte Count 2.43 X10^3/uL (0.83-4.51); Absolute Neutrophil Count 3.9 X10^3/uL (2.0-7.7); Basophil# 0.02 X10^3/uL; Basophil% 0.3 % (0-1); Eosinophil# 0.11 X10^3/uL; Eosinophils% 1.6 % (0-5); Hematocrit 38.8 % (37-47); Hemoglobin 13.7 g/dL (12.0-15.0); Lymphocyte # 2.43 X10^3/ul (0.83-4.51); Lymphocyte % 34.5 % (19-41); Mean Corp Hgb Conc 35.3 g/dL (32-36); Mean Corpuscular Hgb 33.3 pg (27.0-32.0); Mean Corpuscular Volume 94.4 fL (81-99); Mean Platelet Vol. 10.9 fl (6.2-12.0); Monocyte# 0.53 X10^3/uL; Monocyte% 7.5 % (0-10); NRBC Flagged by Analyzer 0 % (0-5); Neutrophil # 3.93 X10^3/uL (2.7-7.7); Neutrophil % 55.8 % (47-70); Platelet Count 195 K/mm3 (150-450); RBC Distribution Width CV 12.5 % (11.6-14.6); RBC Distribution Width SD 43.3 fl (35.1-43.9); Red Blood Count 4.11 M/mm3 (4.2-5.4)
[2022-01-06 18:49] LABS: AST(SGOT) 16 U/L (15-37); Alanine Aminotransfer ALT/SGPT 26 U/L (13-56); Albumin, Serum 3.9 g/dL (3.2-5.0); Alkaline Phosphatase 59 U/L (45-117); Anion Gap 7 (5-15); BUN 13 mg/dL (7-18); BUN/Creat Ratio 21.1 RATIO (10-20); Calcium,Total 9.1 mg/dL (8.5-10.1); Chloride 102 mmol/L (98-107); Creatinine, Serum 0.62 mg/dL (0.55-1.02); EST Glomerular Filtration Rate 120 mL/min (>60); Est Glom Filt Rate - Afr Amer 145 mL/min (>60); Globulin 3.8 g/dL (2.2-4.2); Glucose 68 mg/dL (74-106); Potassium 3.1 mmol/L (3.5-5.1); Protein, Total 7.7 g/dL (6.4-8.2); Sodium Level 138 mmol/L (136-145)
== END 2022-01-06 23:59 | disposition home or self-care (01) ==
PROVIDERS: Referring Provider Internal Medicine Rheumatology; Visit Provider Internal Medicine Rheumatology
DX: L40.59 Other psoriatic arthropathy (principal); R76.8 Other specified abnormal immunological findings in serum; L40.8 Other psoriasis; M21.41 Flat foot [pes planus] (acquired), right foot; Z79.899 Other long term (current) drug therapy; Z87.81 Personal history of (healed) traumatic fracture
CPT/HCPCS: 36415; 80053; 85025

== ENCOUNTER → 2022-08-20 | Outpatient (CLI) | payer BC, SELFPAY ==
[2022-08-28 16:16] LABS: HPV APTIMA, High Risk Negative (Negative)
== END | disposition home or self-care (01) ==
LOC: LABSPEC 14:04
PROVIDERS: Visit Provider Student in an Organized Health Care Education/Training Program
DX: Z12.4 Encounter for screening for malignant neoplasm of cervix (principal)
CPT/HCPCS: 87624; 88175; G0145

== ENCOUNTER → 2025-03-14 | Outpatient (CLI) | payer BC, SELFPAY ==
[2025-03-16 12:08] LABS: QNTFERON TB Mitogen Value > 10.00 IU/mL (.); QNTFERON TB Nil Value 0.02 IU/mL (.); QNTFERON TB1+ Ag Value 0.03 IU/mL (.); QNTFERON TB2+ Ag Value 0.03 IU/mL (.); QNTIFERON TB Positive Criteria Negative (Negative)
== END | disposition home or self-care (01) ==
LOC: MTLAB 13:59
PROVIDERS: Referring Provider Dermatology Pediatric Dermatology; Visit Provider Dermatology Pediatric Dermatology
DX: L40.0 Psoriasis vulgaris (principal); L40.59 Other psoriatic arthropathy; Z79.899 Other long term (current) drug therapy
CPT/HCPCS: 36415; 86480

== ENCOUNTER 2025-06-25 23:31 | Emergency (ER) | payer BC, SELFPAY ==
[2025-06-25 23:33] VITALS: BP 157/96; PULSE 69; RESP 16; TEMP 36.8; O2SAT 100; BMI 24.9
--- NOTE | 2025-06-25 23:55 | EKG12_ITS ---
Test Reason : DYSRHYTHMIA Blood Pressure : */* mmHG Vent. Rate : 71 BPM Atrial Rate : 71 BPM P-R Int : 122 ms QRS Dur : 96 ms QT Int : 382 ms P-R-T Axes : 73 68 38 degrees QTcB Int : 415 ms Normal sinus rhythm with sinus arrhythmia Normal ECG Confirmed by JAMES JOYA, ADRIANNA ([id number]), web editor EMERSON MUKHERJEE ([id number]) on 06/26/2025 1:04:13 PM Referred By: Confirmed By: ADRIANNA RAMIREZ MD
--- NOTE | 2025-06-25 23:56 | CT_ITS ---
PROCEDURE: STROKE CTA HEAD AND NECK W/CON 06/26/2025 REASON FOR EXAM: LEFT-SIDED NUMBNESS TECHNIQUE: STROKE CTA HEAD AND NECK W/CON Multiplanar Sagittal and Coronal images were obtained. CONTRAST: Isovue 370 VOLUME: 99 mL One or more dose reduction techniques were used (e.g., Automated exposure control, adjustment of the mA and/or kV according to patient size, use of iterative reconstruction technique). RADIATION DOSE SUMMARY: CTDlvol: 82 mGy DLP: 1347 mGycm COMPARISON: No FINDINGS: No abnormal brain densities. No intracranial hemorrhage. No hydrocephalus or midline shift. No acute scalp or skull pathology. Clear sinuses, mastoid air cells, middle ear cavities. Unremarkable orbits. Lung apices are clear. Unremarkable superior mediastinum. Neck soft tissues show no acute findings. No abnormal brain enhancement. Unremarkable thoracic arch. The common carotid arteries, extracranial internal carotid arteries, and vertebral arteries are widely patent. No stenosis, dissection, or aneurysm. Intracranial arteries are widely patent. No stenosis, dissection or aneurysm. Dural venous sinuses are patent. CT/STROKE CTA Head AND Neck W/Con IMPRESSION: No acute cervical or intracranial arterial pathology. No thrombosis, stenosis, dissection or aneurysm. Patent dural venous sinuses. Reading Location: [place] [id number]
--- NOTE | 2025-06-25 23:57 | ED.VIS.STROK ---
HPI History of Present Illness Chief Complaint: Numb/Ting Informant: patient and spouse/S.O. Narrative Narrative: 35-year-old female presenting with left-sided numbness and tingling that started last night a little more than 24 hours ago before she went to bed, progressively worse throughout the day today. Involves her left face, left upper extremity, left lower extremity. She states this morning in anglican she had to sit down because she felt like her leg was a little weak on the left. She has not experienced weakness or trouble walking otherwise. She recently was on prednisone, because she developed a red splotchy very itchy rash the day after she went swimming, although nobody else who swim developed the rash when she had no symptoms the day that she swam. She was put on Benadryl and some prednisone, she took 4 days of the prednisone but did not like the way it made her feel so she stopped taking it and the last dose was the day before yesterday. She is otherwise healthy. No other new neurologic symptoms include vision changes, trouble speaking, confusion. PFSH PFSH Medical History no medical history no medical history Allergy/AdvReac Type Severity Reaction Status Date / Time Sulfa (Sulfonamide Allergy Hives Verified 06/25/25 23:33 Antibiotics) Family History no significant family his Surgical History no surgical history Social History Smoking Status: Never smoker ROS ROS ED Constitutional Constitutional ED: Denies chills or fever(s) Eyes Eyes: Denies change in vision or diplopia ENT ENT ED: Denies rhinorrhea or sore throat Cardiovascular Cardiovascular: Denies chest pain or palpitations Respiratory/Chest Respiratory/Chest: Denies cough or dyspnea Gastrointestinal Gastrointestinal: Denies abdominal pain, diarrhea, nausea or vomiting Genitourinary Genitourinary ED: Denies dysuria or hematuria Musculoskeletal Musculoskeletal: Denies back pain or neck pain Integumentary Reports pruritus and rash; Denies abscess Neurologic Neurologic: Reports paresthesias LUE and LLE; Denies headache(s) or weakness Psychiatric Psychiatric: Denies anxiety or suicidal thoughts EXAM Physical Exam Const Vital Signs: 06/25/25 23:33 06/26/25 00:10 06/26/25 00:39 Temperature 98.2 F 98 F Temperature Source Oral Oral Pulse Rate 69 70 Respiratory Rate 16 15 Blood Pressure 157/96 H 114/56 L Blood Pressure Mean 116 75 Pulse Ox 100 99 100 Oxygen Delivery Method Room Air Room Air Room Air 06/26/25 01:32 Temperature Temperature Source Pulse Rate 69 Respiratory Rate 16 Blood Pressure 116/79 Blood Pressure Mean 91 Pulse Ox 98 Oxygen Delivery Method Room Air Positive well nourished and well developed General Appearance ED: well developed and NAD HEENT Reports moist mucous membranes normocephalic and atraumatic Eyes PERRL and EOMs intact bilaterally Neck full ROM and supple Resp normal respiratory effort and clear to auscultation bilaterally Cardio regular rate, regular rhythm and no murmurs GI non-tender and non-distended Auscultation: normoactive bowel sounds Palpation: soft Back/Spine no CVA tenderness General Back: other FROM Extremity normal to inspection General Extremety ED: Negative for edema, pulses abnormal or tenderness General Extremity: Negative for edema or pulses abnormal Neuro oriented x3 and CN's II-XII intact bilaterally Neuro Narrative: No gross sensory loss but decreased sensation left entire face without a facial droop, left upper extremity and left lower extremity without weakness in either. No dysmetria. No Curtis inattention. Normal gait without ataxia or objective weakness. Sensorium / Orientation: awake and alert Motor Exam: strength 5/5 throughout Psych mental status grossly normal Skin no rashes or lesions noted and no wounds MDM MDM MDM Narrative Medical decision making narrative: Cystoscopy patient is just been on 4 days of prednisone and not feeling well, it makes the most sense that the symptoms should be related. However, the numbness is interestingly just on the left side of her body which does not correlate with a reaction to a medication, and brings into the differential primary GAS TESTER etiologies. Certainly the more emergent of those are vascular in nature, and although she is outside of the 24-hour window for a stroke alert/intervention and outside of thrombolytic window, CT angiography of the head and neck were obtained in order to evaluate for the possibility of an emergent vascular situation, I reviewed the images and the report which I agree with it is negative and normal. Certainly other primary neurologic GAS TESTER issues are in the differential such as MS, which I am not able to rule in or rule out here in the ER at this time. Prior to obtaining imaging and EKG which appears normal, we did also do a blood sugar since that can mimic neurologic problems, it was 77 normal, her electrolytes are normal her blood counts are normal, and her troponin is normal as expected. She has had a little bit of a headache, she states it feels similar to the day or 2 prior to her menstrual cycle starting which she is expecting, she has had no nausea, vomiting, photophobia, but I am giving her a dose of Reglan to see if that helps any of this given that migraine would be in the differential as well. The Reglan did not really help any of the numbness. Her electrolytes came back showing a low bicarb, she has had no recent diarrhea and she has no reason to be recently dehydrated. The significance of this is unknown and it is unclear if that could be causing her numbness and tingling. Giving her a liter of fluid, and after that I think stable to be discharged home with close outpatient follow-up. Of note on reevaluation without specifically treating it her blood pressure is 116/79 and the rest of her vital signs are normal. I discussed with she and her at length they are comfortable with that plan. Lab Data Attestation: I reviewed the patient's lab results. Labs: Laboratory Results - last 24 hr 06/26/25 00:08 WBC 8.8 RBC 4.38 Hgb 14.4 Hct 41.9 MCV 95.7 MCH 32.9 H MCHC 34.4 RDW Std Deviation 42.5 RDW Coeff of Isabell 12.1 Plt Count 192 MPV 10.5 Immature Gran % (Auto) 0.500 Neut % (Auto) 43.7 L Lymph % (Auto) 38.8 [place] % (Auto) 9.7 Eos % (Auto) 6.7 H Baso % (Auto) 0.6 Absolute Neuts (auto) 3.9 Absolute Lymphs (auto) 3.43 Nucleated RBC % 0 PT 13.1 INR 1.0 APTT 28.0 Sodium 138 Potassium 4.3 Chloride 103 Carbon Dioxide 20.8 L Anion Gap 14 BUN 13 Creatinine 0.70 Estim Creat Clear Calc 105.01 Est GFR (MDRD) Non-Af 116 BUN/Creatinine Ratio 18.9 Glucose 94 Calcium 9.2 Troponin T High Sens < 6 Radiography Diagnostic Testing: Clinical Impression(s) from Imaging Studies Head/Neck CTA 06/25/25 23:56 IMPRESSION: No acute cervical or intracranial arterial pathology. No thrombosis, stenosis, dissection or aneurysm. Patent dural venous sinuses. Reading Location: [place] [id number] Rhythm Strip Rhythm Strip: Sinus Rhythm Rate: 71 Ectopy: None EKG Initial EKG: Attestation: I personally reviewed and interpreted this EKG as follows: Interpretation: Sinus Rhythm and No Acute Injury Pattern Comments: Nml axis & intervals; nml EKG Discharge Plan Triage Chief Complaint: Numb/Ting ED Provider: Joel Rubio Dx/Rx/DC Orders Clinical Impression: Left sided numbness, Urticaria Instructions: ED Paraesthesias Primary Care Provider: Care Physician,No Primary Referrals: Doctor,Your [Non-Staff] - As soon as possible Print Language: Montserratian Disposition Disposition: Home, Self Care NIHSS NIHSS 1a. Level of Consciousness: 0 - Alert; keenly responsive 1b. LOC Questions: 0 - Answers BOTH questions correctly 1c. LOC Commands: 0 - Performs BOTH tasks correctly 2. Best Gaze: 0 - Normal 3. Visual: 0 - No visual loss 4. Facial Palsy: 0 - Normal symmetrical movements 5a. Left Arm: 0 - No drift; arm holds 90 (or 45) degrees for full 10 seconds 5b. Right Arm: 0 - No drift; arm holds 90 (or 45) degrees for full 10 seconds 6a. Left Le - No drift; leg holds 30-degree position for full 5 seconds 6b. Right Le - No drift; leg holds 30-degree position for full 5 seconds 7. Limb Ataxia: 0 - Absent 8. Sensory: 1 - [id number] sensory loss; 9. Best Language: 0 - No aphasia; normal 10. Dysarthria: 0 - Normal 11. Extinction and Inattention: 0 - No abnormality Total: 1 Stroke Questions Stroke Team Activated: No (Outside of 24 hours)
--- OUTSIDE RECORDS SUMMARY | 2025-06-25 23:59 | XMS RPT_ITS | CCD ---
Author Organization [facility] Care Team Providers Care Agency Legal Counsel Name Role Phone Oberhauser, Tone Unavailable Unavailable Oberhauser, Tone L Unavailable Unavailable MIRIAM HOPE Attending Unavailable SYSTEM, PROVIDER NOT IN Referring Unavaila ble OBERHAUSER, TONE Primary Care Unavailable Oberhauser, Tone Primary Care Provider Odilia Heath Unavailable Unavailable Jose A FONTANEZ Ash Unavailable Unavailable Oberhauser DO Tone Unavailable Unavailable Oberhauser, Tone L Unavailable Unavailable Jose A Ash L Unavailable Unavailable OBERHAUSER, TONE Primary Care Unavailable KRUPA CORONA Attending Unavailable Unavailable Primary Care Provider Unavailabl e Unavailable Primary Care Provider Unavailabl e Care Physician, No Primary Primary Care Provider Unavailable Andrade JOYA, Dr. Romero Attending Provider Dr. Heather Zafar MD Referring Provider TIKI SANTIAGO Admitting Unavailable TIKI SANTIAGO Attending Unavailable TIKI SANTIAGO Primary Care Unavailable Heather Zafar Referring Unavailable Heather Zafar Attending Unavailable Care Physician, No Primary Primary Care Unava ilable Joel Rubio Attending Unavailable Care Physician, No Primary Primary Care Unava ilable Allergies Allergy Classification Reported Allergen(s) Allergy Type Date of Onset Reaction(s) Facility Sulfonamides (antibiotic) (1 source) Sulfonamides (Antibiotic) Drug Allergy [facility] [address] Work Phone: (5 sources) Sulfonamides (Antibiotic) Allergy to drug (finding) [facility] Work Phone: (6 sources) Clindamycin; Translations: [Unknown] Drug Allergy 1 [facility] (3 sources) Sulfonamides (Antibiotic) Allergy to substance 0 [facility] (3 sources) Sulfamethoxazole; Translations: [SULFAMETHOXAZOLE ] Drug Allergy 1 [facility] (1 source) Sulfonamides (Antibiotic) Drug allergy (disorder) 5 [facility] Repository Medications Current Medications Medication Drug Class(es) Dates Sig (Normalized) Sig (Original) calcium carbonate 600 mg / cholecalciferol 125 unt oral tablet (2 sources) Vitamin D Calcium-Cholecal cifer ol, D3, 600-125 mg-unit tab Take by mouth. Active Comment on above: Take by mouth. Calcium Carbonate / vitamin D3 (2 sources) CALCIUM CARBONATE/VITAMIN D3 (CALCIUM 600 + D ORAL) Take by mouth twice daily. Active CALCIUM CARBONAT E/VITAMIN D3 (CALCIUM 600 + D ORAL) Take by mouth twice daily. 0 Active Comment on above: Take by mouth twice daily. doxycycline monohydrate 100 mg oral tablet (2 sources) Tetracycline-class Drug Start : 02-07 take 1 tablet by mouth twice daily at mealtime doxycycline monohydrate 100 mg tablet TAKE 1 TABLET BY MOUTH TWICE DAILY - TAKE WITH FOOD 02/08/2024 Active Comment on above: TAKE 1 TABLET BY [place] TWICE DAILY - TAKE WITH FOOD 1 ml medroxyPROGESTERone acetate 150 mg/ml prefilled syringe (2 sources) Progestin Start : 03-02 medroxyPROGESTERone (DEPO-PROVERA) 150 mg/mL Syrg Inject 1 mL intramuscularly every 12 weeks. 1 Syringe 4 03/02/2013 Active Comment on above: Inject 1 mL intramus cularly every 12 weeks. metroNIDAZOLE 7.5 mg/ml topical cream (2 sources) Nitroimidazole Antimicrobial Start : 02-07 metroNIDAZOLE 0.75 % cream APPLY TOPICALLY TWICE DAILY NEEDED - APPLY TO AFFECTED AREA ON FACE NEEDED FOR RASH 02/08/2024 Active Comment on above: APPLY TOPICALLY TWIC E DAILY NEEDED - APPLY TO AFFECTED AREA ON FACE NEEDED FOR RASH Multivitamin capsule (2 sources) take 1 capsule by mouth once daily Multivitamin capsule Take 1 capsule by mouth once daily. Active take 1 capsule by mouth once devon ly Multivitamin capsule Take 1 capsule by mouth once daily. 0 Active Comment on above: Take 1 capsule by mo ut once daily. Vit,[id number]-Pyio c (Prenatabs Fa) 1 TABLET tablet (3 sources) Start: 03-29-2018 take 1 tablet by mouth once daily Vit,Lwel18-Ipce-Ugf ic (Prenatabs Fa) 1 TABLET tablet Active 1 {tbl} PO DAILY March 29, 2018 12:00am Start: 03-29-2018 take 1 tablet by [place] th once daily Vit,Vgfr63-Cpuv-Uxslf (Prenatab s Fa) 1 TABLET tablet Active 1 TABLET PO DAILY March 28, 2018 11:00pm Start: 03-29-2018 take 1 tablet by [place] once daily Vit,Sxjm03-Rllk-Dgjez (Prenatab s Fa) 1 TABLET tablet Active 1 TABLET PO DAILY March 29, 2018 12:00am VIT/IRON FUM/FOLIC AC ( VITAMIN ORAL) (2 sources) VIT/IRO N FUM/FOLIC AC ( VITAMIN ORAL) Take by mouth. Active VIT/IRO N FUM/FOLIC AC ( VITAMIN ORAL) Take by mouth. 0 Active Comment on above: Take by mouth. valACYclovir 1000 mg oral tablet (1 source) Herpesvirus Nucleoside Analog DNA Polymerase Inhibitor, Herpes Simplex Virus Nucleoside Analog DNA Polymerase Inhibitor, Herpes Zoster Virus Nucleoside Analog DNA Polymerase Inhibitor Start: 4 End: 4 take 1 tablet by mouth three times daily valACYclovir (VALTREX) 1 gram tablet Indications: Herpes zoster without complication Take 1 tablet by mouth three times a day for 7 days. 21 tablet 0 02/24/2024 03/02/2024 Active Comment on above: Take 1 tablet by [place] th three times a day for 7 days. Completed/Discontinued Medications Medication Drug Class(es) Dates Sig (Normalized) Sig (Original) ascorbic acid 500 mg chewable tablet (8 sources) Vitamin C Start: 07-12-2020 Vitamin C Oral Tablet Chewable Refills: 0 Oberhauser DO, Tone Start : 12-Jul-2020 Active ascorbic acid (V ITAMIN C ORAL) Take by mouth. Active ascorbic acid (V ITAMIN C ORAL) Take by mouth. 0 Active Comment on above: Take by mouth. B Complex Oral Tablet (5 sources) Start: 07-12-2020 B Complex Oral Tablet Refills: 0 Oberhauser DO, Tone Start : 12-Jul-2020 Active B Complex Oral Tablet (1 source) Start: 07-12-2020 B Complex Oral Tablet Refills: 0 Tone Paula DO Start : 12-Jul-2020 Active biotin 1 mg oral tablet (6 sources) Start: 07-12-2020 Biotin 1000 MCG Oral Tablet Refills: 0 Tone Paula DO Start : 12-Jul-2020 Active cholecalciferol 0.05 mg oral capsule (9 sources) Vitamin D Start: 07-12-2020 Vitamin D3 50 MCG (2000 UT) Oral Capsule Refills: 0 Tone Paula DO Start : 12-Jul-2020 Active Start: 02-26-2020 take 1 tablet by [place] th once daily Cholecalciferol (Vitamin D3) 1,000 UNIT tablet Active 1000 U PO DAILY February 26, 2020 12:00am cranberry preparation 125 mg oral tablet (6 sources) Non-Standardized Food Allergenic Extract, Non-Standardized Plant Allergenic Extract Start: 07-12-2020 Cranberry 125 MG Oral Tablet Refills: 0 Tone Paula DO Start : 12-Jul-2020 Active Multi-Vitamin Oral Tablet (5 sources) Start: 07-12-2020 Multi-Vitamin Oral Tablet Refills: 0 Tone Paula DO Start : 12-Jul-2020 Active Multi-Vitamin Oral Tablet (1 source) Start: 07-12-2020 Multi-Vitamin Oral Tablet Refills: 0 Tone Paula DO Start : 12-Jul-2020 Active predniSONE 10 mg oral tablet (1 source) Start: 08-17-2020 predniSONE 10 MG (21) Oral Tablet Therapy Pack TAKE 1 MG (21) Other take as directed, oral taper Quantity: 1 Refills: 0 Ash Naranjo DO Start : 17-Aug-2020 Active 21 Tablet Pack Problems Active Problems Problem Classification Problem Date Documented Da te Episodic/Chronic Abdominal pain (6 sources) Epigastric pain; Translations: [Abdominal pain, epigastric] Episodic Other connective tissue disease (6 sources) Radial styloid tenosynovitis; Translations: [Radial styloid tenosynovitis] Episodic Other inflammatory condition of skin (1 source) Psoriasis vulgaris; Translations: [Psoriasis vulgaris] Onset: 03-20-2025 Chronic Other non-traumatic joint disorders (5 sources) Pain in wrist; Translations: [Pain in joint, forearm] Episodic Other non-traumatic joint disorders (1 source) Bilateral wrist pain; Translations: [Bilateral wrist pain] Other screening for suspected conditions (not mental disorders or infectious disease) (1 source) Encounter for screening for malignant neoplasm of cervix; Translations: [Encounter for screening for malignant neoplasm of cervix] Onset: 2025 Episodic Other upper respiratory infections (1 source) Sore throat symptom; Translations: [Acute pharyngitis, unspecified] 08-30-2024 Episodic Residual codes; unclassified (3 sources) Gestation period, 41 weeks; Translations: [41 weeks gestation of ] 02-26-2020 Episodic Urinary tract infections (6 sources) Recurrent urinary tract infection; Translations: [Urinary tract infection, site not specified] Episodic Viral infection (1 source) Herpes zoster without complication; Translations: [Zoster without complications] 02-24-2024 Episodic Past or Other Problems Problem Classification Problem Date Documented Da te Episodic/Chronic NEGATED: Highlighted row has not occurred!Residual codes; unclassified (20 sources) Disease Episodic Results Test Name Value Interpretation Reference Range Facility THIN PREP (Tressa) PAP WITH HP V REFLEXon 04-28-2025 THIN PREP (Tressa) PAP WITH HPV REFLEX Normal [facility] Comment on above: Result Comment: _THIN PREP (Adult) PAP w HPV REFLEX_ Performed By: #### [id number] #### [facility],[address] [place] [id number] Quantiferon TB-Gold+on 03-16 QFT MITOGEN JERRY > 10.00 Normal . [facility] Comment on above: Performed By: #### [id number] #### [facility] [place], [address] QFT NIL VALUE 0.02 IU/mL Normal . [facility] Comment on above: Performed By: #### [id number] #### [facility] [address] [place], [address] QFT TB GOLD+ Comment Normal . [facility] Comment on above: Result Comment: QuantiFERON-TB Gold Plus is a qualitative indirect test for M tuberculosis infection (including disease) and is intended for use in conjunction with risk assessment, radiography, and other medical and diagnostic evaluations. The QuantiFERON-TB Gold Plus result is determined by subtracting the Nil value from either TB antigen (Ag) value. The Mitogen tube serves as a control for the test. Performed By: #### [id number] #### [facility] [address] [facility]. [place], [place], [id number] QFT TB POS CRIT Negative Normal Negative [facility] Comment on above: Result Comment: No response to M tubercu losis antigens detected. Infection with M tuberculosis is unlikely, but high risk individuals should be considered for additional testing (ATS/IDSA/CDC Clinical Practice Guidelines, 2017). The reference range is an Antigen minus Nil result of <0.35 IU/mL. The specimen received for QuantiFERON testing was incubated by the ordering institution. Specific procedures outlined in our Directory of Services and in the package insert for the QuantiFERON Gold (In Tube) test must be followed to enable for proper stimulation of cells for the production of interferon gamma. Chemiluminescence immunoassay methodology Performed at: [facility] [id number] [employer] Floor Person: Ced Higgins PhD, Phone: [phone] Performed By: #### L [id number] #### [facility] [address] [facility] [place], [address] QFT TB1+ AG JERRY 0.03 IU/mL Normal . [facility] Comment on above: Performed By: #### [id number] #### [facility] [address] [place], [address] QFT TB2+ AG JERRY 0.03 IU/mL Normal . [facility] Comment on above: Performed By: #### [id number] #### [facility] [address] [facility] [place], [address] M. tuberculosis tuberculin s zain IFN-g Ql (Bld)Ordered By: Heather Zafar on 03-14-2025 TB Test (QFT) Antigen 1 0.03 IU/mL . [facility] Quantiferon-TB Gold Plus concha tOrdered By: Heather Zafar on 03-14-2025 TB Test (QFT) Comment . [facility] Comment on above: QuantiFERON-TB Gold Plus is a qualitativ e indirect test forM tuberculosis infection (including disease) and isintended for use in conjunction with risk assessment,radiography, and other medical and diagnostic evaluations.The QuantiFERON-TB Gold Plus result is determined bysubtracting the Nil value from either TB antigen (Ag)value. The Mitogen tube serves as a control for the test. TB Test (QFT) Antigen 2 0.03 IU/mL . [facility] TB Test (QFT) Mitogen > 10.00 IU/mL . [facility] TB Test (QFT) Nil 0.02 IU/mL . [facility] TB Test (QFT) Positive Criteria Negative Negative [facility] Comment on above: No response to M tuberculosis antigens d etected.Infection with M tuberculosis is unlikely, but high riskindividuals should be considered for additional testing(ATS/IDSA/CDC Clinical Practice Guidelines, 2017). Thereference range is an Antigen minus Nil result of <0.35IU/mL.The specimen received for QuantiFERON testing was incubatedby the ordering institution. Specific procedures outlinedin our Directory of Services and in the package insert forthe QuantiFERON Gold (In Tube) test must be followed toenable for proper stimulation of cells for the productionof interferon gamma. Chemiluminescence immunoassaymethodologyPerformed at: [facility] [id number] Director: Ced Higgins PhD, Phone: [phone] Andrew 08-30-2024 [facility] Office Visit (UCWSTR ) EMELI MCINTYRE ([id number]) 1990 F Date Time Provider Department 08/30/24 7:45 AM [facility] During your visit today, we recorded the following information about you: Temperature Pulse Respiration Blood pressure 97.6 degrees 79/minute 16/minute 112/78 Weight 67.1 kg Hemanth Denny APRN.FINISH SANDER 08/30/2024 9:04 AM Signed CC: Patient presents with: Ear Pain: Left ear pain and sore throat x 1 day HPI: Emeli Mcintyre is a 34 year old female who presents to the office with complaint of sore throat and ear symptoms since this morning. Symptoms are staying the same. Associated symptoms includes ear pain. Denies fever, nausea, vomiting , and diarrhea. Treatments tried include nothing so far. with no relief of symptoms. Sick contacts: unknown. History of asthma, frequent episodes of bronchitis, chronic bronchitis, bronchiectasis or COPD: No Smoker: No Seasonal/environmental allergies: No The ROS is otherwise negative. The patient's pmh, medications, allergies, and past visits are reviewed. PHYSICAL EXAM: BP 112/78 Pulse 79 Temp 36.4 ?C (97.6 ?F) (Tympanic) Resp 16 Wt 67.1 kg (147 lb 14.9 oz) LMP 07/05/2017 SpO2 96% General appearance: alert, cooperative, pleasant, in no acute distress Head: Normocephalic Eyes: EOM's intact, conjunctiva pink and moist, no icterus, sclera white, non-injected Ears: Right ear: External ear/canal- Normal, TM - clear with good landmarks. Left ear: External ear/canal- Normal, TM - clear with good landmarks Oropharynx:mild erythema, without exudates present Neck:mild cervical adenopathy Heart: Negative. RRR without obvious murmur, gallop, or rubs. No ectopy. Lungs: clear to auscultation, without rales or wheeze, good air exchange PAST MEDICAL HISTORY Diagnosis Date Impetigo Lactose intolerance MRSA (methicillin resistant staph aureus) culture positive PMH - PAST MEDICAL HISTORY OF 07/22/07 normal color vision PAST SURGICAL HISTORY Procedure Laterality Date EXTRACTION, ERUPTED TOOTH OR EXPOSED ROOT (ELEVATION AND/OR FORCEPS REMOVAL) 05/19/2010 [place] teeth ALLERGIES Bactrim [Sulfamethoxazole] and Clindamycin MEDICATIONS doxycycline monohydrate 100 mg tablet TAKE 1 TABLET BY MOUTH TWICE DAILY - TAKE WITH FOOD metroNIDAZOLE 0.75 % cream APPLY TOPICALLY TWICE DAILY NEEDED - APPLY TO AFFECTED AREA ON FACE NEEDED FOR RASH Calcium-Cholecalciferol, D3, 600-125 mg-unit tab Take by mouth. ascorbic acid (VITAMIN C ORAL) Take by mouth. CALCIUM CARBONATE/VITAMIN D3 (CALCIUM 600 + D ORAL) Take by mouth twice daily. VIT/IRON FUM/FOLIC AC ( VITAMIN ORAL) Take by mouth. Multivitamin capsule Take 1 capsule by mouth once daily. (Patient not taking: Reported on 02/26/2021 ) medroxyPROGESTERone (DEPO-PROVERA) 150 mg/mL Syrg Inject 1 mL intramuscularly every 12 weeks. (Patient not taking: Reported on 02/26/2021 ) FAMILY HISTORY Problem Relation Age of Onset Diabetes Father age 47 year. type 1 ME other (arrythemia [Other]) Father Diabetes Paternal Uncle other (eye problems [Other]) Other maternal side other (congestive heart failure [Other]) Maternal Grandfather other (renal cancer [Other]) Maternal Grandfather Hypertension Mother Glaucoma Mother Asthma Brother Social History Tobacco Use Smoking status: Never Smokeless tobacco: Never Substance Use Topics Alcohol use: No Drug use: No ASSESSMENT/PLAN: 1. Sore throat - ICD9: 462, ICD10: J02.9 - STREP A MOLECULAR (POC)- neg Just over the counter medication at this time. . Potential red flag symptoms discussed with the patient. Reviewed appropriate action plan to take if red flag symptoms occur. Patient agreeable to treatment plan. Hemanth Denny APRN.FINISH SANDER Allergies As of Date: 08/30/2024 Noted Allergy Reaction BACTRIM (SULFAMETHOXAZOLE) 10/13/2011 4 - Hives CLINDAMYCIN 10/13/2011 4 - Hives Date Reviewed: 08/30/2024 Reviewed by: Jonelle Montes LPN - Fully Assessed Reason for Visit: Ear Pain [817] Cmt: Left ear pain and sore throat x 1 day Primary Visit Diagnosis:Sore throat [J02.9] Order(s):STREP A MOLECULAR (POC) [3378737] Order #: [id number] STREP A MOLECULAR (POC) [2080668] Order #: [id number]. #:[id number] Prescriptions as of 08/30/2024 - doxycycline monohydrate 100 mg tablet TAKE 1 TABLET BY MOUTH TWICE DAILY - TAKE WITH FOOD - metroNIDAZOLE 0.75 % cream APPLY TOPICALLY TWICE DAILY NEEDED - APPLY TO AFFECTED AREA ON FACE NEEDED FOR RASH - Calcium-Cholecalciferol, D3, 600-125 mg-unit tab Take by mouth. - ascorbic acid (VITAMIN C ORAL) Take by mouth. - VIT/IRON FUM/FOLIC AC ( VITAMIN ORAL) Take by mouth. - Multivitamin capsule Take 1 capsule by mouth once daily. - medroxyPROGESTERone (DEPO-PROVERA) 150 mg/mL Syrg Inject (more content not included)... Normal [facility] STREP A MOLECULAR (POC)on Procedural Control Valid [facility] Strep A (POCT) Negative Negative [facility] CNOVon 02-24-2024 [facility] Office Visit (UCWSTR ) EMELI MCINTYRE ([id number]) 1990 F Date Time Provider Department 02/24/24 7:30 AM [facility] During your visit today, we recorded the following information about you: Temperature Pulse Respiration Blood pressure 97.6 degrees 76/minute 18/minute 112/78 Weight 66 kg Amanuel Gr APRN.CNP 02/24/2024 7:48 AM Signed Subjective HPI HPI Emeli Archer Francisco Javier is a 33 year old female who presents today for CC of painful rash right arm. This started 2 days ago. Has tried nothing for relief. Symptoms are worsened by nothing. Risk factors hx of shingles. Denies chronic disease. Denies possibility of being . .Patient presents with: Rash: Painful rash on right arm x 5 days PAST MEDICAL HISTORY Diagnosis Date Impetigo Lactose intolerance MRSA (methicillin resistant staph aureus) culture positive PMH - PAST MEDICAL HISTORY OF 07/22/07 normal color vision PAST SURGICAL HISTORY Procedure Laterality Date EXTRACTION, ERUPTED TOOTH OR EXPOSED ROOT (ELEVATION AND/OR FORCEPS REMOVAL) 05/19/2010 [place] teeth ALLERGIES Bactrim [Sulfamethoxazole] and Clindamycin MEDICATIONS doxycycline monohydrate 100 mg tablet TAKE 1 TABLET BY MOUTH TWICE DAILY - TAKE WITH FOOD metroNIDAZOLE 0.75 % cream APPLY TOPICALLY TWICE DAILY NEEDED - APPLY TO AFFECTED AREA ON FACE NEEDED FOR RASH Calcium-Cholecalciferol, D3, 600-125 mg-unit tab Take by mouth. ascorbic acid (VITAMIN C ORAL) Take by mouth. VIT/IRON FUM/FOLIC AC ( VITAMIN ORAL) Take by mouth. Multivitamin capsule Take 1 capsule by mouth once daily. (Patient not taking: Reported on 02/26/2021 ) medroxyPROGESTERone (DEPO-PROVERA) 150 mg/mL Syrg Inject 1 mL intramuscularly every 12 weeks. (Patient not taking: Reported on 02/26/2021 ) CALCIUM CARBONATE/VITAMIN D3 (CALCIUM 600 + D ORAL) Take by mouth twice daily. FAMILY HISTORY Problem Relation Age of Onset Diabetes Father age 47 year. type 1 ME other (arrythemia [Other]) Father Diabetes Paternal Uncle other (eye problems [Other]) Other maternal side other (congestive heart failure [Other]) Maternal Grandfather other (renal cancer [Other]) Maternal Grandfather Hypertension Mother Glaucoma Mother Asthma Brother Social History Tobacco Use Smoking status: Never Smokeless tobacco: Never Substance Use Topics Alcohol use: No Drug use: No Review of Systems Constitutional: Negative for fever and malaise/fatigue. Objective Blood pressure 112/78, pulse 76, temperature 36.4 ?C (97.6 ?F), temperature source Tympanic, resp. rate 18, weight 66 kg (145 lb 8.1 oz), last menstrual period 07/05/2017, SpO2 98%, unknown if currently . Physical Exam Constitutional: General: She is not in acute distress. Appearance: She is not toxic-appearing or diaphoretic. HENT: Head: Normocephalic and atraumatic. Pulmonary: Effort: Pulmonary effort is normal. No accessory muscle usage or respiratory distress. Skin: Neurological: Mental Status: She is alert and oriented to person, place, and time. ASSESSMENT/PLAN: 1. Herpes zoster without complication - ICD9: 053.9, ICD10: B02.9 Treat with valtrex Discussed contagiousness F/u with pcp for worsening or continued s/s. - VALACYCLOVIR 1 GRAM TABLET Amanuel Gr APRN.FINISH SANDER Allergies As of Date: 02/24/2024 Noted Allergy Reaction BACTRIM (SULFAMETHOXAZOLE) 10/13/2011 4 - Hives CLINDAMYCIN 10/13/2011 4 - Hives Date Reviewed: 02/24/2024 Reviewed by: Amanuel Gr APRN.FINISH SANDER - Fully Assessed Reason for Visit: Rash [1087] Cmt: Painful rash on right arm x 5 days Primary Visit Diagnosis:Herpes zoster without complication [B02.9] Order(s):valACYclovir (VALTREX) 1 gram tabletTake 1 tablet by mouth three times a day for 7 days.Disp: 21 tabletRfl: 0 Prescriptions as of 02/24/2024 - doxycycline monohydrate 100 mg tablet TAKE 1 TABLET BY MOUTH TWICE DAILY - TAKE WITH FOOD - metroNIDAZOLE 0.75 % cream APPLY TOPICALLY TWICE DAILY NEEDED - APPLY TO AFFECTED AREA ON FACE NEEDED FOR RASH - valACYclovir (VALTREX) 1 gram tablet Take 1 tablet by mouth three times a day for 7 days. - Calcium-Cholecalciferol, D3, 600-125 mg-unit tab Take by mouth. - ascorbic acid (VITAMIN C ORAL) Take by mouth. - VIT/IRON FUM/FOLIC AC ( VITAMIN ORAL) Take by mouth. - Multivitamin capsule Take 1 capsule by mouth once daily. - medroxyPROGESTERone (DEPO-PROVERA) 150 mg/mL Syrg Inject 1 mL intramuscularly every 12 weeks. - CALCIUM CARBONATE/VITAMIN D3 (CALCIUM 600 + D ORAL) Take by mouth twice daily. Problem List As Of Date: 02/24/2024 (None) Prescriptions ordered this encounter Disp Refills Start End VALACYCLOVIR 1 GRAM TABLET 21 t* 0 02/24/2024 03/02/2024 Route: ORAL Sig: Take 1 tablet by mouth three times a day for 7 days. (more content not included)... Normal [facility] Cervical or vagninal specime n microscopic examination by cytology stain (reported ason 08-20-2022 Cytology report Cyto stain Doc (Cvx/Vag) Comment . [facility] Work Phone: Comment on above: The Pap smear is a screening test design ed to aid in thedetection of premalignant and malignant conditions of theuterine cervix. It is not a diagnostic procedure andshould not be used as the sole means of detecting cervicalcancer. Both false-positive and false-negative reports dooccur. Detection in cervical specim en of any of human papilloma virus (HPV) 16, 18, 31, 33,on 08-20-2022 HPV 16+18+31+33+35+3 9+45+51+52+56+58 +59+66+68 DNA Probe+sig amp Ql (Cvx) Negative Negative [facility] Work Phone: Comment on above: This nucleic acid amplification test det ects fourteen high-risk HPV types (16,18,31,33,35,39,45,51,52,56,58,59,66,68)without differentiation.Performed at: - [facility] [id number] Director: Hali Parnell MD, Phone: [phone] at: = - [facility] [id number] Director: Hali Parnell MD, Phone: [phone] Laboratory - Cytologyon 08-01 Salv[employer] Winder And Inspector Cyto stain Nom (Cvx/Vag) [ID] Comment . [facility] Work Phone: Comment on above: Lyn Brown, Gas Well Drilling Manager (ASCP) Laboratory - Miscellaneous t estson 08-20-2022 Service comment (Unsp spec) [Interp] Comment . [facility] Work Phone: Comment on above: This liquid based ThinPrep(R) pap test w as screened withthe use of an image guided system. Service comment (Unsp spec) [Interp] . . [facility] Work Phone: No Panel Informationon 08-20 Pathology report final diagnosis Narrative Comment . [facility] Work Phone: Comment on above: NEGATIVE FOR INTRAEPITHELIAL LESION OR M ALIGNANCY. XR FOOT RIGHT 3+ VIEWS (YUMIKO MCCLENDON)on 05-21-2022 XR FOOT RIGHT 3+ VIEWS (STANDARD) EXAMINATION: XR FOOT RIGHT 3+ VIEWS (STANDARD) 05/21/2022 7:59 am HISTORY: ORDERING SYSTEM PROVIDED HISTORY: twisted with Hx of arthritis, TECHNOLOGIST PROVIDED HISTORY: Injury/Trauma Reason for exam: Right lateral foot pain Cancer History: unk Surgery, RadiationHistory: ukn Encounter Type: Initial Mechanism of injury: Rolled right foot yesterday resulting in lateral right foot pain ORDERING SYSTEM PROVIDED DIAGNOSIS CODES: COMPARISON: None. FINDINGS: No acute fracture or dislocation. Intact joint spaces. Unremarkable soft tissues. IMPRESSION: No acute right foot abnormality. Workstation ID: [id number] Dictated by: SHAYLA YORK on ThuMay 21, 2022 8:08:16 AM EDT Transcribed by: SHAYLA YORK on ThuMay 21, 2022 8:08:16 AM EDT Finalized by: SHAYLA YORK on ThuMay 21, 2022 8:08:16 AM EDT [facility] Comment on above: Order Comment: Injury/Trauma or Illness? :Injury/Trauma How long have you had these symptoms (acute/chronic)?:Acute Reason for exam?:Right lateral foot pain History of cancer?:unk Surgeries, chemotherapy, or radiation?:ukn Type of Exam?:Initial Mechanism of injury?:Rolled right foot yesterday resulting in lateral right foot pain Established Visit (Orthopaed ic Surgery)on 08-17-2020 Established Visit (Orthopaedic Surgery) Diagnoses/Problems Assessed Pain in both wrists (719.43) (M25.531,M25.532) Orders Pain in both wrists Start: predniSONE 10 MG (21) Oral Tablet Therapy Pack; TAKE 1 MG (21) Other take as directed, oral taper Provider Impressions Assessment - bilateral wrist pain Plan?this is a very complicated situation. Patient has had no improvement in her wrist pain despite therapy. I am not sure where the pain is coming from. Her work-up with regards to rheumatologic conditions was negative. Her EMG was negative. She continues to have pain. I would like to try an oral steroid Dosepak. Her stomach issues seem to have resolved and so we will see if this provides her some relief of her wrist pain. I will call her in 2 weeks to evaluate how she is doing. This note has been created with voice recognition software. Please be aware that there may be grammatical or contextual errors due to the use of the software. Chief Complaint PT IS HERE FOR 6 WK FU ON KATHY WRIST PAIN S/P OT. STATES PAIN DEPENDS ON ACTIVITY PAIN IS ON THE UPPER SIDE OF THE HAND ON BOTH HANDS AND ACROSS THE WRIST, WHEN DOING A LOT OF TYPING AND FOLDING OF CLOTHES EFFECTS IT A LOT. 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 Patient has undergone a course of physical therapy with a hand therapist. She has had no improvement of her pain symptoms and no improvement of her tingling sensations. She also underwent EMG of the bilateral upper extremities which did not show any nerve entrapment in the cervical elbow or wrist regions. She continues to have pain. This is significantly exacerbated by activity. Is improved by rest. She is very frustrated she has had no improvement and no change in her symptoms. Her stomach issues have resolved. Review of Systems Constitutional: no fever, no chills, not feeling tired, no recent weight gain and no recent weight loss. ENT: no nosebleeds. Cardiovascular: no chest pain. Respiratory: no shortness of breath and no cough. Gastrointestinal: no abdominal pain, no nausea, no vomiting and no diarrhea. Musculoskeletal: arthralgias. Integumentary: no rashes and no skin wound. Neurological: no headache. Psychiatric: no depression and no sleep disturbances. Endocrine: no muscle weakness and no muscle cramps. Hematologic/Lymphatic: no swollen glands and no tendency for easy bruising. All other systems have been reviewed and are negative for complaint. Active Problems Problems Acute epigastric pain (789.06,338.19) (R10.13) Pain in both wrists (719.43) (M25.531,M25.532) Tenosynovitis, de Quervain (727.04) (M65.4) Past Medical History Problems History of Frequent UTI (599.0) (N39.0) Surgical History Problems History of Colonoscopy History of [place] tooth extraction Family History Mother Family history of LTG (low tension glaucoma) of cirrhosis at 52, alcoholic Father Family history of Controlled type 2 diabetes mellitus with stage 3 chronic kidney disease, without long-term current use of insulin at 47, not sure if it was overdose or ME Child Family history of Healthy child Brother Family history of Healthy adult Other Family history of diabetes mellitus (V18.0) (Z83.3) Family history of hypertension (V17.49) (Z82.49) Family history of mental disorder (V17.0) (Z81.8) Social History Problems Minimum alcohol consumption No illicit drug use Non-smoker (V49.89) (Z78.9) Occasional caffeine consumption Allergies Medication Sulfa Drugs Recorded By: Pilar Clay; 07/12/2020 10:10:25 AM Current Meds Medication NameInstruction B Complex Oral Tablet Biotin 1000 MCG Oral Tablet Cranberry 125 MG Oral Tablet Multi-Vitamin Oral Tablet Vitamin C Oral Tablet Chewable Vitamin D3 50 MCG (1999) Oral Capsule Vitals Vital Signs Recorded: [id number] 10:00AM Iwqubeqwrwr80.7 F Vedfxpyj368 Nqeatzaaw37 Height5 ft 6 in Vuvvzw400 lb 6 oz BMI Xqgcnnzqfh18.95 BSA Calculated1.76 Physical Exam Alert and Oriented x 3 Patient resting comfortably in the exam room Normocephalic atraumatic extraocular movements intact mucous membranes moist warm well perfused extremities nonlabored breathing appropriate mood and affect no evidence of lymphedema Bilateral hands Skin is intact throughout the hands no erythema ecchymosis or lesions no significant areas of tenderness to palpation Full range of motion dorsiflexion 30 degrees palmar flexion 50 degrees appropriate radial and ulnar deviation as well as circumduction Negative DRUJ shuck Negative Tinel negative Phalen negative Yash Intact motor and sensory in the radial median and ulnar nerve distribution with palpable pulses brisk cap refill Results/Data Comprehensive Metabolic [id number] 08:30AMTone Paula Test NameResultFlagReference Glucose, Serum86 mg/dL74 - 99 Sodium, Yjtjw379 mmol/L136 - 145 POTASSIUM3.8 mmol/L3.5 - 5.3 Chloride, Ofxkq718 mmol/L98 - 107 Bicarbonate, Serum30 mmol/L21 - 32 Anion Gap, Serum8 mmol/LL10 - 20 Blood Urea Nitrogen, Serum16 mg/dL6 - 23 CREATININE0.70 mg/dLSee Below Reference Range: 0.50 - 1.05 Calcium, Serum9.5 mg/dL8.6 - 10.3 Albumin, Serum4.3 g/dL3.4 - 5.0 ALKALINE [id number] U/L33 - 110 Protein, Total Serum6.9 g/dL6.4 - 8.2 Bilirubin, Serum Total0.6 mg/dL0.0 - 1.2 ALT (SGPT), Serum25 U/L7 - 45 Patients treated with Sulfasalazine may generate falsely decreased results for ALT. GFR Non >60 mL/min/1.73m2>60 GFR >60 mL/min/1.73m2>60 CALCULATIONS OF ESTIMATED GFR ARE PERFORMED USING THE MDRD STUDY EQUATION FOR THE IDMS-TRACEABLE CREATININE METHODS. CLIN CHEM 2007;53:766-72 AST16 U/L9 - 39 Anti Nuclear Antibody (reflexes DIAMOND panel if Positive)[id number] 08:30AMFisher, Ash Test NameResultFlagReference Anti Nuclear AntibodyNEGATIVENEGATIVE Rheumatoid Factor, Serum or [id number] 08:30AMFisher, Ash Test NameResultFlagReference Rheumatoid Factor, Serum or Plasma<10 IU/mL0 - 15 Sedimentation Rate, [id number] 08:30AMFisher, Ash Test NameResultFlagReference Sedimentation Rate, Erythrocyte7 mm/h0 - 20 C Reactive Protein, [id number] 08:30AMFisher, Ash Test NameResultFlagReference C Reactive Protein, Serum<0.10 mg/dL REF VALUE < 1.00 Signatures Electronically signed by : Ash Naranjo DO; Aug 17 2020 10:43AM EST (Author) [facility] OT Progress Noteon 0 OT Progress Note Therapy Diagnosis Assessed Pain in both wrists (719.43) (M25.531,M25.532) Plan Goals: Goals set and discussed today. 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 LTG: Pt will demo overall decreased B wrist pain with no more than average 2/10 pain rating on daily basis in order to return to PLOF. 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 08/16: progressing 5/5 for B wrist flexion, 4+/5 B supination however no increased pain STG: Pt will demo improved AROM LUE wrist extension by 15' for improved functional use of LUE during bilateral tasks. 08/16: progressing, 65' (improved by 7') but more comparable to RUE STG: Pt will demonstrate good carryover of HEP for ROM, strengthening, activity tolerance and pain management in order to improve functional independence at home/work. STG: Pt will demo good compliance to splint wear for DeQuarvains for decreased overall pain and improved support. Motor Function/Control/Tone: Frequency and duration: no further visits planned. Potential to achieve rehab goals is good. Discharge patient:. Assessment Pt has attended 06/07 sessions in her POC and has made little progress towards her goals. See progress towards specific goals in goals section. Patient demo minimal improvements in animal trainer supervisor strength and joint stability however has improved DRUJ stability with decreased laxity during piano sepulveda test. She also tested negative for ulnar nerve impingement which she tested positive for at evaluation in B wrists. She continues to demo pain and NANDT that are inconsistent with specific nerve pathways and seem to be abnormal in comparison to a typical peripheral nerve pathology. Patient does have a history of a spinal cord injury and was encouraged to contact a neurologist regarding atypical pain/NANDT symptoms. Pt feels that she is basically the same as when she started therapy. Pt ed that she has made slight improvements with L wrist AROM and B strength however not as much as the therapist was anticipating. Pt is agreeable to being d/c from therapy and open to possibly seeking out a second opinion through a neurologist. Patient was able to complete today's treatment with some difficulty. Adult Risk Screening Initial Fall Risk Screening: EMELI has not fallen in the last 6 months. Patient Declined. Her fall did not result in injury. EMELI does not have a fear of falling. She does not need assistance with sitting, standing or walking. Does not need assistance walking in her home. She does not need assistance in an unfamiliar setting. The patient is not using an assistive device. Pain Scale: On a scale of 0 to 10, the patient rates the pain at 3. Please identify location of pain: B wrists. Insurance Insurance reviewed Visit number: 7 [employer] 06/07 Subjective Patient reports:. Patient rates pain a 3/10 in bilat hands/wrists. She continues to report pain on dorsal aspect of B hands with NANDT on volar sides of hands without relief. Pt is aware and agreebale to d/c from OT following this apt unless she wants to attend her remaining scheduled apt next week which pt was informed to call tomorrow after her f/u apt to confirm or cx her remaining session. Treatment Time in clinic started at 1630 pm Time in clinic ended at 1700 pm Total time in clinic is 30 minutes. Total timed code time is 28 minutes. Therapeutic exercise (19788): timed minutes 28 . [id number] -R/L KIMBERLY -R/L palmar/lateral pinch -L wrist extension measurement -B wrist flexion/sup/pro MMT -outcome measure completed and results were reviewed -provided additional HEP for putty exercises to continue with animal trainer supervisor strength activities at home -B piano sepulveda test with improved stability and decreased laxity -B ulnar nerve impingement -/- -discussing POC with pt to be d/c and to continue with animal trainer supervisor strength at home with new exercises. 'Scores and Scales' Signatures Electronically signed by : Elizabeth Villanueva OTR/L; Aug 16 2020 5:13PM EST (Author) [facility] Therapy Re-eval Noteon 08-16 Therapy Re-eval Note Therapy Diagnosis Assessed Pain in both wrists (719.43) (M25.531,M25.532) Plan Goals: Goals set and discussed today. 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 LTG: Pt will demo overall decreased B wrist pain with no more than average 2/10 pain rating on daily basis in order to return to PLOF. 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 08/16: progressing 5/5 for B wrist flexion, 4+/5 B supination however no increased pain STG: Pt will demo improved AROM LUE wrist extension by 15' for improved functional use of LUE during bilateral tasks. 08/16: progressing, 65' (improved by 7') but more comparable to RUE STG: Pt will demonstrate good carryover of HEP for ROM, strengthening, activity tolerance and pain management in order to improve functional independence at home/work. STG: Pt will demo good compliance to splint wear for DeQuarvains for decreased overall pain and improved support. Motor Function/Control/Tone: Frequency and duration: no further visits planned. Potential to achieve rehab goals is good. Discharge patient:. Assessment Pt has attended 06/07 sessions in her POC and has made little progress towards her goals. See progress towards specific goals in goals section. Patient demo minimal improvements in animal trainer supervisor strength and joint stability however has improved DRUJ stability with decreased laxity during piano sepulveda test. She also tested negative for ulnar nerve impingement which she tested positive for at evaluation in B wrists. She continues to demo pain and NANDT that are inconsistent with specific nerve pathways and seem to be abnormal in comparison to a typical peripheral nerve pathology. Patient does have a history of a spinal cord injury and was encouraged to contact a neurologist regarding atypical pain/NANDT symptoms. Pt feels that she is basically the same as when she started therapy. Pt ed that she has made slight improvements with L wrist AROM and B strength however not as much as the therapist was anticipating. Pt is agreeable to being d/c from therapy and open to possibly seeking out a second opinion through a neurologist. Patient was able to complete today's treatment with some difficulty. Adult Risk Screening Initial Fall Risk Screening: EMELI has not fallen in the last 6 months. Patient Declined. Her fall did not result in injury. EMELI does not have a fear of falling. She does not need assistance with sitting, standing or walking. Does not need assistance walking in her home. She does not need assistance in an unfamiliar setting. The patient is not using an assistive device. Pain Scale: On a scale of 0 to 10, the patient rates the pain at 3. Please identify location of pain: B wrists. Insurance Insurance reviewed Visit number: 7 [employer] 06/07 Subjective Patient reports:. Patient rates pain a 3/10 in bilat hands/wrists. She continues to report pain on dorsal aspect of B hands with NANDT on volar sides of hands without relief. Pt is aware and agreebale to d/c from OT following this apt unless she wants to attend her remaining scheduled apt next week which pt was informed to call tomorrow after her f/u apt to confirm or cx her remaining session. Treatment Time in clinic started at 1630 pm Time in clinic ended at 1700 pm Total time in clinic is 30 minutes. Total timed code time is 28 minutes. Therapeutic exercise (38533): timed minutes 28 . [id number] -R/L KIMBERLY -R/L palmar/lateral pinch -L wrist extension measurement -B wrist flexion/sup/pro MMT -outcome measure completed and results were reviewed -provided additional HEP for putty exercises to continue with animal trainer supervisor strength activities at home -B piano sepulveda test with improved stability and decreased laxity -B ulnar nerve impingement -/- -discussing POC with pt to be d/c and to continue with animal trainer supervisor strength at home with new exercises. 'Scores and Scales' Signatures Electronically signed by : Elizabeth Villanueva OTR/L; Aug 16 2020 5:13PM EST (Author) [facility] OT Progress Noteon 0 OT Progress Note Therapy Diagnosis Assessed Pain in both wrists (719.43) (M25.531,M25.532) Plan Goals: Goals set and discussed today. 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 LTG: Pt will demo overall decreased B wrist pain with no more than average 2/10 pain rating on daily basis in order to return to PLOF. 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 STG: Pt will demo improved AROM LUE wrist extension by 15' for improved functional use of LUE during bilateral tasks STG: Pt will demonstrate good carryover of HEP for ROM, strengthening, activity tolerance and pain management in order to improve functional independence at home/work. STG: Pt will demo good compliance to splint wear for DeQuarvains for decreased overall pain and improved support. Motor Function/Control/Tone: Potential to achieve rehab goals is good. Progress with POC, as tolerated. Assessment Patient dropped nut/washer inside [place] several times, especially when applying to top L side and L side panel. She reported fatigue in bilat wrists dorsally post [place] and short handled supervisor sunglasses tasks. She reported increased pain in bilat wrists dorsally/radially a 4/10 at the end of the session. Patient relayed that the aching in her hands has diminished but she still feels it when shes holding onto the steering wheel for an extended period of time. Patient was able to complete today's treatment with some difficulty. Adult Risk Screening Initial Fall Risk Screening: EMELI has not fallen in the last 6 months. Patient Declined. Her fall did not result in injury. EMELI does not have a fear of falling. She does not need assistance with sitting, standing or walking. Does not need assistance walking in her home. She does not need assistance in an unfamiliar setting. The patient is not using an assistive device. Pain Scale: On a scale of 0 to 10, the patient rates the pain at 3. Please identify location of pain: B wrists. Insurance Insurance reviewed Visit number: 05/08 Subjective Patient reports:. Patient rates pain a 3/10 in bilat hands/wrists. She is having headaches on and off and occasional tingling daily it's not as frequent...it's not like a constant all day long. She has a f/u with Dr. Naranjo this coming August 17. Treatment Time in clinic started at 1635 pm Time in clinic ended at 1720 pm Total time in clinic is 45 minutes. Total timed code time is 43 minutes. Therapeutic Activity (16366): timed minutes 43 . [id number] R/L wrist/forearm AROM and FMC to apply/remove 4 bolt sets to/from top panel and 2 bolt sets to/from back/front/R and L side panels of BTE [place] R/L sustained grasp and Boing using RD/UD x1min each hand R/L mass grasp, forearm pro/sup and short handled supervisor sunglasses with resistance to transfer large dowel x3 round trips each . 'Scores and Scales' Signatures Electronically signed by : XANDER Montoya; Aug 14 2020 5:21PM EST (Author) Electronically signed by : SOMMER Heck/L; Aug 17 2020 10:54AM EST (Author) [facility] OT Progress Noteon 0 OT Progress Note No report was sent [facility] Therapy Communicationon 07-31 Therapy Communication Message Patient showed up for 1400 OT appointment stating she's had a day with c/o headache, neck pain of 7/10, bilat wrist pain of 5/10 and relayed that earlier in the day she was experiencing vision issues stating It felt like looking through a kaleidoscope...it only lasted for about 15-20sec. She called Dr. Naranjo's office to find out the results of her EMG but left a message. After consultation w/OTR/L, OT session was deferred d/t patient's symptoms and patient encouraged to contact Dr. Naranjo's office again. Signatures Electronically signed by : XANDER Montoya; Aug 09 2020 4:36PM EST (Author) [facility] OT Progress Noteon 0 OT Progress Note Therapy Diagnosis Assessed Pain in both wrists (719.43) (M25.531,M25.532) Plan Goals: Goals set and discussed today. 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 LTG: Pt will demo overall decreased B wrist pain with no more than average 2/10 pain rating on daily basis in order to return to PLOF. 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 STG: Pt will demo improved AROM LUE wrist extension by 15' for improved functional use of LUE during bilateral tasks STG: Pt will demonstrate good carryover of HEP for ROM, strengthening, activity tolerance and pain management in order to improve functional independence at home/work. STG: Pt will demo good compliance to splint wear for DeQuarvains for decreased overall pain and improved support. Motor Function/Control/Tone: Potential to achieve rehab goals is good. Progress with POC, as tolerated. Assessment Patient reports fatigue post exercises. She reported feeling sharp pains on dorsum of L wrist not terribly bad w/Clothespin tasks. Patient reported no change in pain at the end of the session. Patient was able to complete today's treatment with some difficulty. Adult Risk Screening Initial Fall Risk Screening: EMELI has not fallen in the last 6 months. Patient Declined. Her fall did not result in injury. EMELI does not have a fear of falling. She does not need assistance with sitting, standing or walking. Does not need assistance walking in her home. She does not need assistance in an unfamiliar setting. The patient is not using an assistive device. Pain Scale: On a scale of 0 to 10, the patient rates the pain at 3. Please identify location of pain: B wrists. Insurance Insurance reviewed Visit number: 04/07 Subjective Patient reports:. Patient rates pain in bilat wrists/hands a 3/10. She has been experiencing aching daily in bilat wrists and almost like a shock pain in bilat wrists it's not an every day thing (the shock sensation) Patient expressed that she has been having more pain in her neck lately as well. Patient states I don't have the strength like I used to have and has difficulty opening jars, often times asking her for assistance. Treatment Time in clinic started at 1600 pm Time in clinic ended at 1645 pm Total time in clinic is 45 minutes. Total timed code time is 40 minutes. Modalities: untimed minutes 8 . 4132-1596 Fluidotherapy x8min on bilat hands/wrists/forearms. Therapeutic exercise (97442): timed minutes 40 . 7633-6156 Patient interview while in fluido R/L D2-5 grasp to palm to transfer 6, 11# [place] clothespins to/from bottom<>middle<>top<>vertical dowels x3 round trips R/L RD/UD and Powerweb [id number] each direction R/L mass grasp and Powerweb x2 sets of 12reps each hand. 'Scores and Scales' Signatures Electronically signed by : JOSE Montoya/Juana; Aug 07 2020 4:48PM EST (Author) Electronically signed by : SOMMER Heck/Juana; Aug 10 2020 10:06AM EST (Author) Normal Touchworks OT Progress Noteon 0 OT Progress Note Therapy Diagnosis Assessed Pain in both wrists (719.43) (M25.531,M25.532) Plan Goals: Goals set and discussed today. 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 bilateral wrist pain. Pt. states she had this pain x3 years. No recent imaging has been done. History of Present IllnessPatient is a pleasant 30-year-old female who presents today as referral from Dr. Paula. She is here today to be evaluated for bilateral wrist pain. Patient has had wrist pain for approximately the last 3 years. It has significantly worsened after she has had children. She denies any specific traumatic event to the wrist. She states that the pain is predominantly on the dorsal aspect of the wrist with some radiation to the radial and ulnar sides some of it radiates proximally up the forearm and she does complain of some numbness and tingling on the volar aspect of the forearm. She states the pain can be 5 out of 10 at its worst and 0 out of 10 at its best. It is exacerbated by activities where she uses her hands lifting twisting gripping activities. She has not had any formal treatments for her wrist pain. Review of Systems Constitutional: no fever, no chills, not feeling tired, no recent weight gain and no recent weight loss. ENT: no nosebleeds. Cardiovascular: no chest pain. Respiratory: no shortness of breath and no cough. Gastrointestinal: abdominal pain, but no nausea, no diarrhea and no vomiting. Musculoskeletal: as noted in HPI and no arthralgias. Integumentary: no rashes and no skin wound. Neurological: no headache. Psychiatric: no sleep disturbances and no depression. Endocrine: no muscle weakness and no muscle cramps. Hematologic/Lymphatic: no swollen glands and no tendency for easy bruising. Active Problems Acute epigastric pain (789.06,338.19) (R10.13) Tenosynovitis, de Quervain (727.04) (M65.4) Past Medical History History of Frequent UTI (599.0) (N39.0) Surgical History History of Colonoscopy History of [place] tooth extraction Family History Family history of LTG (low tension glaucoma) of cirrhosis at 52, alcoholic Family history of Controlled type 2 diabetes mellitus with stage 3 chronic kidney disease, without long-term current use of insulin at 47, not sure if it was overdose or ME Family history of Healthy child Family history of Healthy adult Family history of diabetes mellitus (V18.0) (Z83.3) Family history of hypertension (V17.49) (Z82.49) Family history of mental disorder (V17.0) (Z81.8) Social History Minimum alcohol consumption No illicit drug use Non-smoker (V49.89) (Z78.9) Occasional caffeine consumption Allergies Sulfa Drugs Recorded By: Pilar Clay; 07/12/2020 10:10:25 AM Current Meds B Complex Oral Tablet; Therapy: [id number] to Recorded Rx By: Tone Paula; Dispense: 0 Days ; #: Sufficient Tablet; Refill: 0;For: Health Maintenance; PETRA = N; Record; Last Updated By: Pilar Clay; 07/12/2020 10:10:25 AM Biotin 1000 MCG Oral Tablet; Therapy: [id number] to Recorded Rx By: Tone Paula; Dispense: 0 Days ; #: Sufficient Tablet; Refill: 0;For: Health Maintenance; PETRA = N; Record; Last Updated By: Pilar Clay; 07/12/2020 10:10:25 AM Cranberry 125 MG Oral Tablet; Therapy: [id number] to Recorded Rx By: Tone Paula; Dispense: 0 Days ; #: Sufficient Tablet; Refill: 0;For: Health Maintenance; PETRA = N; Record; Last Updated By: Pilar Clay; 07/12/2020 10:10:25 AM Multi-Vitamin Oral Tablet; Therapy: [id number] to Recorded Rx By: Tone Paula; Dispense: 0 Days ; #: Sufficient Tablet; Refill: 0;For: Health Maintenance; PETRA = N; Record; Last Updated By: Pilar Clay; 07/12/2020 10:10:25 AM Vitamin C Oral Tablet Chewable; Therapy: [id number] to Recorded Rx By: Tone Paula; Dispense: 0 Days ; #: Sufficient Tablet; Refill: 0;For: Health Maintenance; PETRA = N; Record; Last Updated By: Pilar Clay; 07/12/2020 10:10:25 AM Vitamin D3 50 MCG (1999) Oral Capsule; Therapy: 12Jul2020 to Recorded Rx By: Tone Paula; Dispense: 0 Days ; #: Sufficient Capsule; Refill: 0;For: Health Maintenance; PETRA = N; Record; Last Updated By: Pilar Clay; 07/12/2020 10:10:25 AM Vitals Vital Signs Recorded: 17Jul2020 03:30PM Twypvdozvhj02.2 F Xfmcteys173 Iylheizgf19 Height5 ft 6 in Nvyrnh906 lb 12 oz BMI Nwxbpygevb16.33 BSA Calculated1.77 Physical Exam Alert and Oriented x 3 Patient resting comfortably in the exam room Normocephalic atraumatic extraocular movements intact mucous membranes moist warm well perfused extremities nonlabored breathing appropriate mood and affect no evidence of lymphedema Bilateral wrists skin is intact no erythema ecchymosis or lesions Mild tenderness to palpation over the first dorsal compartment and on the dorsum of the fourth compartment. Intact motor and sensory in the radial median and ulnar nerve distributions full range of motion dorsiflexion palmar flexion radial and ulnar deviation with some mild pain at the extremes of range of motion Palpable pulses brisk cap refill soft compartments Negative Tinel negative Phalen positive Yash's negative Tinel at the elbow Negative DRUJ shuck Diagnoses/Problems Pain in both wrists (719.43) (M25.531,M25.532) Orders Pain in both wrists Occupational Therapy - General Referral Evaluation and Treatment Evaluate AND Treat bilateral wrist pain Status: Active Requested for: [id number] Ordered;For: Pain in both wrists; Ordered By: Ash Naranjo Performed: Due: [id number]; Last Updated By: Dana Mcleod; 07/17/2020 4:15:53 PM Provider Impressions Assessment?bilateral wrist pain Plan?patient has bilateral wrist pain that is been present for the last 3 years. It is exacerbated by lifting twisting turning and fine motor tasks in the hands. She does not have symptoms consistent with carpal tunnel syndrome. She does not have any numbness and tingling in the median nerve distribution and she is negative for the provocative tests suggestive of median nerve entrapment at the wrist. She does have a mildly positive Yash's which is indicative of de Quervain's tenosynovitis she is also tender over the first dorsal compartment. She does have pain in this area but she also has pain on the dorsal aspect of the wrist which is somewhat vague in description. I am concerned with the diffuse nature and bilateral nature of her pain symptoms that she may have a systemic inflammatory condition which is causing her pain. She possibly has a family history of psoriatic arthritis although she has no cutaneous plaques suggestive of this. I also asked the patient if there was a history of fibromyalgia which she denied. We will start treatments with a topical anti-inflammatory compound and prescribe the patient a course of occupational therapy. The goal will be to decrease the inflammation in the wrists hopefully improve her pain symptoms and allow her to work well with therapy to stretch and strengthen the hands and wrists. If this does not provide improvement we will further evaluate the wrist with advanced imaging. My concern in treatment is that she is having some significant stomach pain she has been evaluated further with advanced imaging of her abdomen. This precludes the ability to use oral anti-inflammatories. We will plan to see her back in 6 weeks after she is undergone therapy. Signatures Electronically signed by : Ash Naranjo DO; Jul 17 2020 4:30PM EST (Author) Normal [employer] Progress Noteon 10-10-2019 [employer] Authentication Interface Message Text Maternal Medicine Consult Date of Service: 10/10/2019 Referring Provider: Winston Kaufman Primary Care Provider: [facility], MD Ethan Reason for Consult: Dr. Winston Kaufman requests that Emeli be evaluated due to suspected amniotic bank vs. Synechia finding on prior ultrasound. Dana is a 29 y.o. at 21w1d gestation who presents for evaluation of possible abnormal intrauterine finding during prior ultrasound. OB History Para Term AB Living 3 1 1 0 1 1 SAB TAB Ectopic Multiple Live Births 0 0 0 0 1 # Outcome Date GA Lbr Paulie/2nd Weight Sex Delivery Anes PTL Lv 3 Current 2 Term 04/10/18 39w6d 3.893 kg F Vag-Spont N GORDON Name: Birdie 1 AB 12/2015 8w0d SAB Past Medical History: Diagnosis Date History of abnormal cervical Pap smear 01/08/2017 LGSIL Seasonal allergies Vaginal Pap smear, abnormal Past Surgical History: Procedure Laterality Date COLPOSCOPY 02/04/2017 WISDOM TOOTH EXTRACTION Allergies Allergen Reactions Clindamycin Hives Sulfa Antibiotics Hives Sulfamethoxazole Hives Social History Socioeconomic History Marital status: Spouse name: Scar Number of children: None Years of education: 16 Highest education level: None Occupational History Occupation: systems coordinator Employer: [employer] Social Needs Financial resource strain: None Food insecurity: Worry: None Inability: None Transportation needs: Medical: None Non-medical: None Tobacco Use Smoking status: Never Smoker Smokeless tobacco: Never Used Substance and Sexual Activity Alcohol use: No Drug use: No Sexual activity: None Lifestyle Physical activity: Days per week: None Minutes per session: None Stress: None Relationships Social connections: Talks on phone: None Gets together: None Attends pres[employer]beterian service: None Active member of club or organization: None Attends meetings of clubs or organizations: None Relationship status: None Intimate partner violence: Fear of current or ex partner: None Emotionally abused: None Physically abused: None Forced sexual activity: None Other Topics Concern None Social History Narrative None Infections Live with someone with or exposed to TB No Partner has hx of genital herpes No Rash or viral illness since last menstruation No History of STI's Hx of MMR Yes 2nd STI Hx of Chicken Pox Yes 3rd STI Is there anything else we should know? No Other infections Genetics Age is > than 35y as of estimated date No Thalassemia No Neural Tube Defect No Congenital Heart Defect No Down Syndrome No Mayur-Sachs No Min Disease No Sickle Cell Disease or Trait No Hemophilia, Thrombophilia No Muscular Dystrophy No Cystic Fibrosis No Richwood's Chorea No Mental Retardation/Autism No Maternal Metabolic Disorder No Recurrent Loss, or a Stillbirth No Inherited Genetic or Chromosomal Disorder No Illicit; Rec.drugs; Alcohol since last menses No Family History Problem Relation Age of Onset Diabetes Father at 47 Depression Father Heart Attack Father Depression Maternal Grandmother Stroke Maternal Grandmother Brain Cancer Paternal Grandmother Cancer Paternal Grandmother spinal, brain Depression Mother High Blood Pressure Mother Glaucoma Mother Cancer Maternal Grandfather lung Diabetes Paternal Uncle Outpatient Encounter Medications as of 10/10/2019 Medication Sig Dispense Refill NATURAL VITAMIN D-3 125 MCG (5000 UT) TABS Take 1 Tab by mouth daily 10 Calcium Carbonate Antacid (TUMS E-X PO) Take 2 Tabs by mouth as needed Vit-Fe Fumarate-FA ( VITAMIN) 27-0.8 MG TABS Take by mouth No facility-administered encounter medications on file as of 10/10/2019. Overview & Plan : Naidu Review of Systems Negative. Physical Exam Alert and oriented in no distress. Abd: gravid, nontender. FHT: Positive Ultrasound Results: 1. Single living intrauterine with biometry consistent with clinical dates. 2. Anatomic survey was adequately visualized and appeared normal. 3. Amniotic fluid appeared normal. 4. Placenta is anterior, grade 1 without evidence of previa. Band of tissue is seen connecting the lower edge of placenta from left to right, suggestive of circumvallate edge. No vascularity within it. All extremities are seen moving freely. Impression: Emeli is a 29 y.o. female who is at 21w1d gestation. 1. Suspected Circumvallate (partial) placentation. The posterior lower edge of placenta appears raised (from left to right) - it gives the appearance of possible synechia, however there is a thin rim of placental tissue seen extending to each side of this 'band of tissue' thus more consistent with circumvallate edge. This is a more delicate implantation area, thus increased risk for abruption at this edge. Abruption precautions given. 50% of circumvallate edged placentas resolve by 28 weeks, thus will reassess at followup. Partial circumvallate edge does not usually affect growth pattern. Recommendations: Repeat evaluation for growth assessment is recommended in 8 weeks and recheck placentation. She will follow up with [facility] for this repeat evaluation. All Emeli's and her 's questions were answered prior to her departure today. Thank you for allowing us to participate in your patient's care. Please call if you have any questions. I spent 30 min face to face with her today, with >50% time in counseling/coordination of care. Key Carrera MD 10/10/2019 Normal [facility] Vital Signs Date Time Vital Sign Value Performing Clinician Facility 08-30-2024 07:46-0400 Body temperature 97.59 [degF] Hemanth Denny APRN.CNP Work Phone: [facility] 08-30-2024 07:46-0400 Body weight 67.1 kg Hemanth Denny APRN.GEOVANNA Work Phone: [facility] 08-30-2024 07:46-0400 Diastolic blood pressure 78 mm[Hg] Hemanth Denny [employer].FINISH SANDER Work Phone: [facility] 08-30-2024 07:46-0400 Heart rate 79 /min Hemanth Denny [employer].FINISH SANDER Work Phone: [facility] 08-30-2024 07:46-0400 Respiratory rate 16 /min Hemanth Denny [employer].FINISH SANDER Work Phone: [facility] 08-30-2024 07:46-0400 SaO2% (BldA) [Mass fraction] 96 % Hemanth Denny [employer].FINISH SANDER Work Phone: [facility] 08-30-2024 07:46-0400 Systolic blood pressure 112 mm[Hg] Hemanth Denny [employer].FINISH SANDER Work Phone: [facility] 02-24-2024 07:22-0400 Body temperature 97.59 [degF] Amanuel Gr [employer].FINISH SANDER Work Phone: [facility] 02-24-2024 07:22-0400 Body weight 66 kg Amanuel Gr [employer].FINISH SANDER Work Phone: [facility] 02-24-2024 07:22-0400 Diastolic blood pressure 78 mm[Hg] Amanuel Gr [employer].FINISH SANDER Work Phone: [facility] 02-24-2024 07:22-0400 Heart rate 76 /min Amanuel Gr [employer].FINISH SANDER Work Phone: [facility] 02-24-2024 07:22-0400 Respiratory rate 18 /min Amanuel Gr [employer].FINISH SANDER Work Phone: [facility] 02-24-2024 07:22-0400 SaO2% (BldA) [Mass fraction] 98 % Amanuel Gr [employer].FINISH SANDER Work Phone: [facility] 02-24-2024 07:22-0400 Systolic blood pressure 112 mm[Hg] Amanuel Gr [employer].FINISH SANDER Work Phone: [facility] 07-17-2020 17:30-0400 BMI (Body Mass Index) 24.33 kg/m2 [facility] 300 Work Phone: 07-17-2020 17:30-0400 Body Temperature 98.2 [degF] [facility] 300 Work Phone: 07-17-2020 17:30-0400 Body weight 68.38 kg [facility] 300 Work Phone: 07-17-2020 17:30-0400 BP Diastolic 70 mm[Hg] [facility] 300 Work Phone: 07-17-2020 17:30-0400 BP Systolic 116 mm[Hg] [facility] 300 Work Phone: 07-17-2020 17:30-0400 BSA (Body Surface Area) 1.77 m2 [facility] 300 Work Phone: 07-17-2020 17:30-0400 Height 167.64 cm [facility] 300 Work Phone: 07-12-2020 12:11-0400 BMI (Body Mass Index) 23.73 kg/m2 [facility] Work Phone: 07-12-2020 12:11-0400 Body Temperature 98.6 [degF] [facility] Work Phone: 07-12-2020 12:11-0400 Body weight 66.68 kg [facility] Work Phone: 07-12-2020 12:11-0400 BP Diastolic 76 mm[Hg] [facility] Work Phone: 07-12-2020 12:110400 BP Systolic 115 mm[Hg] [facility] Work Phone: 07-12-2020 12:11040 BSA (Body Surface Area) 1.75 m2 [facility]one Paula [facility] Work Phone: 07-12-2020 12:11040 Height 167.64 cm Tone Paula [facility] Work Phone: 07-12-2020 12:11040 Pulse (Heart Rate) 72 /min Tone Paula [facility] Hillary [facility] Work Phone: Encounters Encounter Date Encounter Type Care Provider Facility Start: 06-25-2025 ambulatory [facility] Facility :[facility] Start: 2025 End: 2025 ambulatory [facility] Start: 03-14-2025 End: 03-14-2025 ambulatory No Primary Care Physician [facility] Work Phone: Start: 03-14-2025 End: 03-14-[address] Heather Zafar MD -Laboratory, [place] Work Phone: Start: 03-14-2025 End: 03-14-2025 ambulatory Heather Zafar Facility:[facility] Start: 08-30-2024 End: 08-30-2024 ambulatory Facility:[facility] Start: 08-30-2024 End: 08-30-2024 Patient encounter procedure Hemanth Denny APRN.FINISH SANDER Work Phone: [facility] Comment on above: Sore throat (Primary Dx) Start: 02-24-2024 End: 02-24-2024 ambulatory Facility:[facility] Start: 02-24-2024 End: 02-24-2024 Patient encounter procedure Amanuel Gr APRN.FINISH SANDER Work Phone: [facility] Comment on above: Herpes zoster withou t complication (Primary Dx) Start: 08-20-2022 End: 08-20-2022 ambulatory [facility] Work Phone: Start: 08-20-2022 End: 08-20-2022 Patient encounter procedure [facility]-Laboratory, Specimen Start: 05-21-2022 End: 05-21-2022 Emergency department patient visit TONE COFFEYKARANBALAJI [facility] Start: 08-17-2020 Patient encounter procedure Ash Naranjo [facility] 300 Work Phone: Start: 08-16-2020 Patient encounter procedure Ash Naranjo [facility] 300 Work Phone: Start: 08-14-2020 Patient encounter procedure Ash Naranjo [facility] and [facility] 300 Work Phone: Start: 08-07-2020 Patient encounter procedure Tone Paula [facility] Work Phone: Start: 08-02-2020 Patient encounter procedure Tone Paula [facility] Work Phone: Start: 08-01-2020 End: 08-01-2020 Patient encounter procedure MIRIAM PALACIO HERMINIA [facility] Start: 08-01-2020 End: 08-01-2020 Patient encounter procedure Miriam Hope Work Phone: [facility] Comment on above: Bilateral wrist pain Start: 07-26-2020 Patient encounter procedure Tone Teresandykaran [facility] Work Phone: Start: 07-24-2020 [facility] Work [facility]: Start: 07-19-2020 Patient encounter procedure Tone Paula [facility] 300 Work Phone: Start: 07-17-2020 Patient encounter procedure Tone Paula [facility] 300 Work Phone: Start: 07-12-2020 Patient encounter procedure Tone Paula [facility] 300 Work Phone: Procedures Date Procedure Procedure Detail Performing Clinician Start: 08-30-2024 STREP A MOLECULAR (POC) [facility] Provider Start: 07-25-2020 EMG and Nerve Conduction Tone Paula Start: 07-12-2020 Comprehensive metabo lic 2000 panel Tone Paula Start: 07-12-2020 Ultrasound Abdominal Limited F/U Tone Paula Start: 07-12-2020 Follow-up visit Colonoscopy Tone suarez Extraction of wisdom tooth M therese Paula Plan of Treatment Date Care Activity Detail Author Start: 07-31-2024 Covid-19 Vaccine ( season) Covid-19 Vaccine () [facility] Start: 07-31-2024 Influenza vaccination Influenza Vacc ine (#1) [facility] Start: 11-30-2023 Depression Assessment Depression Ass essment [facility] Start: 07-31-2023 Covid-19 Vaccine ( season) Covid-19 Vaccine ( season) [facility] Start: 07-31-2023 Influenza vaccination Influenza Vacc ine (#1) [facility] [place] Start: 06-29-2022 Urine microalbumin profile DTaP,Tdap,Td Vaccine (8 - Td or Tdap) [facility] [place] Start: 07-31-2020 Influenza vaccinatio n given Sequential Influenza Vaccine (#1) [facility] Start: 07-18-2020 Ultrasound Abd ominal Limited F/U [facility] Work Phone: Start: 2020 Screening for malignant neoplasm of cervix HPV Testing [facility] [place] Start: 02-16-2018 Screening for malignant neoplasm of cervix Pap Testing [facility] [place] Start: 02-17-2016 Screening for malignant neoplasm of cervix Cervical Cancer Screening [facility] [place] Start: 2008 Anxiety Screening Anxiety Screening [facility] [place] Start: 2008 Depression Screening Depression Scre ening [facility] [place] Start: 2008 Hepatitis C antibody , confirmatory test Hepatitis C Screening [facility] Start: 2008 Hepatitis C screening Hepatitis C Sc anna [facility] [place] Start: 2008 HIV screening HIV Screening [facility] Start: 2005 HIV screening HIV Screening [facility] Start: 02-25-2004 Hepatitis B Vaccine (3 of 3 - 3-dose series) Hepatitis B Vaccine (3 of 3 - 3-dose series) [facility] [place] Start: 1993 History and physical examination, annual for health maintenance Wellness Visit [facility] Start: 1990 Screening for malignant neoplasm of cervix Pap Smear [facility] Start: 1990 Tetanus vaccination Tetanus: Every [address] [facility] Path report.final Dx Spec [facility] Work Phone: STREP A MOLECULAR (POC) STREP A MOLECULAR (POC) Microbiology Routine Sore throat Ordered: 08/30/2024 [facility] Work Phone: Comment on above: Ordered: 08/30/2024 [facility] Work Phone: NEGATED: Highlighted row has been ruled out! Planned Goals not documented [facility] Work Phone: Immunizations Immunization Date Immunization Notes Care Provider Asif issa 06-29-2012 meningococcal polysaccharide vaccine (MPSV4) Amanuel Gr [employer] Work Phone: [facility] [place] 06-29-2012 tetanus toxoid, redu ada diphtheria toxoid, and acellular pertussis vaccine, adsorbed Amanuel Simón [employer] Work Phone: [facility] [place] 12-31-2003 hepatitis B vaccine, pediatric or pediatric/adolescent dosage Amanuel Simón [employer] Work Phone: [facility] [place] Work Phone: 06-30-2003 diphtheria and tetan us toxoids, adsorbed for pediatric use Amanuel Simón [employer] Work Phone: [facility] [place] Work Phone: 06-30-2003 hepatitis B vaccine, pediatric or pediatric/adolescent dosage Amanuel Simón [employer] Work Phone: [facility] [place] Work Phone: 04-01-1995 diphtheria, tetanus toxoids and acellular pertussis vaccine Amanuel Simón [employer] Work Phone: [facility] [place] Work Phone: 04-01-1995 poliovirus vaccine, inactivated Amanuel Simón [employer] Work Phone: [facility] [place] Work Phone: 03-31-1995 tuberculin skin test ; purified protein derivative solution, intradermal Hemanth Denny [employer] Work Phone: [facility] [place] 10-12-1991 diphtheria, tetanus toxoids and acellular pertussis vaccine Amanuel Simón [employer] Work Phone: [facility] [place] Work Phone: 10-12-1991 poliovirus vaccine, inactivated Amanuel Simón [employer].[facility] Work Phone: [facility] [place] Work Phone: 08-03-1991 measles, mumps and rubella virus vaccine Amanuel Simón [employer].[facility] Work Phone: [facility] [place] Work Phone: 1990 diphtheria, tetanus toxoids and acellular pertussis vaccine Amanuel Simón [employer] Work Phone: [facility] [place] Work Phone: 1990 diphtheria, tetanus toxoids and acellular pertussis vaccine Amanuel Simón [employer] Work Phone: [facility] [place] Work Phone: 1990 poliovirus vaccine, inactivated Amanuel Simón [employer] Work Phone: [facility] [place] Work Phone: 1990 diphtheria, tetanus toxoids and acellular pertussis vaccine Amanuel Simón [employer] Work Phone: [facility] [place] Work Phone: 1990 poliovirus vaccine, inactivated Amanuel Simón [employer] Work Phone: [facility] [place] Work Phone: Payers Date Payer Category Payer Self-pay [id number] 2021 Unknown [employer] BL[employer] C[employer] PPO OOS [id number] 2021-Present [phone] [facility] [id number] [place] [address] PPO [id number] 2021 Unknown [id number] 2018 Unknown [id number] 2018 Unknown MMO [employer]PER[employer] PPO [id number] 2018-Present [id number] 2015 Private Health Insurance [facility] [id number] 1990 Unknown [id number] 1990 Unknown [id number] 1990 Unknown [id number] Unknown [employer] [place] [id number] Unknown [id number] 62 Unknown [id number] Social History Date Type Detail Facility Assertion Tobacco smoking consumption unknown (finding) [facility] Work Phone: Start: 02-26-2020 End: 08-01-2020 Tobacco smoking status NHIS Unknown if ever smoked [facility] Start: 1990 Sex Assigned At Not on file [facility] Exposure to SARS-CoV -2 (event) Not sure [facility] Start: 02-26-2020 None [facility] Start: 1990 Sex Assigned At Female W zachariah [facility] Start: 02-16-2013 End: 02-26-2020 Tobacco smoking status NHIS Never smoked tobacco [facility] [place] Start: 02-16-2013 Tobacco use and exposure Smokeless tobacco non-user [facility] [place] Start: 02-24-2024 End: 08-30-2024 Alcohol intake Current non-drinker of alcohol (finding) [facility] [place] Start: 11-06-2020 End: 02-24-2024 History of Social function [facility] [place] Start: 11-06-2020 End: 02-24-2024 Tobacco use panel [facility] National Score (1-100), lower number is lower risk Not on file [facility] [place] Start: 03-20-2025 Sex Female (finding) [facility] Functional Status Date Assessment Result Facility NEGATED: Highlighted row Functional performance Functional status health issues are not documented Disease [facility] Work Phone: Mental Status Date Assessment Result Facility NEGATED: Highlighted row Cognitive function [Interpretation] Cognitive status health issues are not documented Disease [facility] Work Phone: Progress note 08-30-2024 Note Date & Type Note Facility 08-30-2024 Note HNO ID: [id number] Author: HEMANTH DENNY APRN.FINISH SANDER Service: ? Author Type: Nurse Practitioner Type: Progress Notes Filed: 08/30/2024 09:04 Note Text: CC: Patient presents with: Ear Pain: Left ear pain and sore throat x 1 day HPI: Emeli Mcintyre is a 34 year old female who presents to the office with complaint of sore throat and ear symptoms since this morning. Symptoms are staying the same. Associated symptoms includes ear pain. Denies fever, nausea, vomiting , and diarrhea. Treatments tried include nothing so far. with no relief of symptoms. Sick contacts: unknown. History of asthma, frequent episodes of bronchitis, chronic bronchitis, bronchiectasis or COPD: No Smoker: No Seasonal/environmental allergies: No The ROS is otherwise negative. The patient's pmh, medications, allergies, and past visits are reviewed. PHYSICAL EXAM: BP 112/78 Pulse 79 Temp 36.4 ?C (97.6 ?F) (Tympanic) Resp 16 Wt 67.1 kg (147 lb 14.9 oz) LMP 07/05/2017 SpO2 96% General appearance: alert, cooperative, pleasant, in no acute distress Head: Normocephalic Eyes: EOM's intact, conjunctiva pink and moist, no icterus, sclera white, non-injected Ears: Right ear: External ear/canal- Normal, TM - clear with good landmarks. Left ear: External ear/canal- Normal, TM - clear with good landmarks Oropharynx:mild erythema, without exudates present Neck:mild cervical adenopathy Heart: Negative. RRR without obvious murmur, gallop, or rubs. No ectopy. Lungs: clear to auscultation, without rales or wheeze, good air exchange PAST MEDICAL HISTORY Diagnosis Date Impetigo Lactose intolerance MRSA (methicillin resistant staph aureus) culture positive PMH - PAST MEDICAL HISTORY OF 07/22/07 normal color vision PAST SURGICAL HISTORY Procedure Laterality Date EXTRACTION, ERUPTED TOOTH OR EXPOSED ROOT (ELEVATION AND/OR FORCEPS REMOVAL) 05/19/2010 [place] teeth ALLERGIES Bactrim [Sulfamethoxazole] and Clindamycin MEDICATIONS doxycycline monohydrate 100 mg tablet TAKE 1 TABLET BY MOUTH TWICE DAILY - TAKE WITH FOOD metroNIDAZOLE 0.75 % cream APPLY TOPICALLY TWICE DAILY NEEDED - APPLY TO AFFECTED AREA ON FACE NEEDED FOR RASH Calcium-Cholecalciferol, D3, 600-125 mg-unit tab Take by mouth. ascorbic acid (VITAMIN C ORAL) Take by mouth. CALCIUM CARBONATE/VITAMIN D3 (CALCIUM 600 + D ORAL) Take by mouth twice daily. VIT/IRON FUM/FOLIC AC ( VITAMIN ORAL) Take by mouth. Multivitamin capsule Take 1 capsule by mouth once daily. (Patient not taking: Reported on 02/26/2021 ) medroxyPROGESTERone (DEPO-PROVERA) 150 mg/mL Syrg Inject 1 mL intramuscularly every 12 weeks. (Patient not taking: Reported on 02/26/2021 ) FAMILY HISTORY Problem Relation Age of Onset Diabetes Father age 47 year. type 1 ME other (arrythemia [Other]) Father Diabetes Paternal Uncle other (eye problems [Other]) Other maternal side other (congestive heart failure [Other]) Maternal Grandfather other (renal cancer [Other]) Maternal Grandfather Hypertension Mother Glaucoma Mother Asthma Brother Social History Tobacco Use Smoking status: Never Smokeless tobacco: Never Substance Use Topics Alcohol use: No Drug use: No ASSESSMENT/PLAN: 1. Sore throat - ICD9: 462, ICD10: J02.9 - STREP A MOLECULAR (POC)- neg Just over the counter medication at this time. . Potential red flag symptoms discussed with the patient. Reviewed appropriate action plan to take if red flag symptoms occur. Patient agreeable to treatment plan. Hemanth Denny APRN.GEOVANNA [facility] History of Present illness Narrative 08-30-2024 Hemanth Denny APRN.GEOVANNA - 08/30/2024 7:50 AM EDT Note Date & Type Note Facility 08-30-2024 History of Presen t illness Narrative CC: Patient presents with: Ear Pain: Left ear pain and sore throat x 1 day HPI: Emeli Mcintyre is a 34 year old female who presents to the office with complaint of sore throat and ear symptoms since this morning. Symptoms are staying the same. Associated symptoms includes ear pain. Denies fever, nausea, vomiting , and diarrhea. Treatments tried include nothing so far. with no relief of symptoms. Sick contacts: unknown. History of asthma, frequent episodes of bronchitis, chronic bronchitis, bronchiectasis or COPD: No Smoker: No Seasonal/environmental allergies: No The ROS is otherwise negative. The patient's pmh, medications, allergies, and past visits are reviewed. PHYSICAL EXAM: BP 112/78 Pulse 79 Temp 36.4 C (97.6 F) (Tympanic) Resp 16 Wt 67.1 kg (147 lb 14.9 oz) LMP 07/05/2017 SpO2 96% General appearance: alert, cooperative, pleasant, in no acute distress Head: Normocephalic Eyes: EOM's intact, conjunctiva pink and moist, no icterus, sclera white, non-injected Ears: Right ear: External ear/canal- Normal, TM - clear with good landmarks. Left ear: External ear/canal- Normal, TM - clear with good landmarks Oropharynx:mild erythema, without exudates present Neck:mild cervical adenopathy Heart: Negative. RRR without obvious murmur, gallop, or rubs. No ectopy. Lungs: clear to auscultation, without rales or wheeze, good air exchange PAST MEDICAL HISTORY Diagnosis Date Impetigo Lactose intolerance MRSA (methicillin resistant staph aureus) culture positive PMH - PAST MEDICAL HISTORY OF 07/22/07 normal color vision PAST SURGICAL HISTORY Procedure Laterality Date EXTRACTION, ERUPTED TOOTH OR EXPOSED ROOT (ELEVATION AND/OR FORCEPS REMOVAL) 05/19/2010 [place] teeth ALLERGIES Bactrim [Sulfamethoxazole] and Clindamycin MEDICATIONS doxycycline monohydrate 100 mg tablet TAKE 1 TABLET BY MOUTH TWICE DAILY - TAKE WITH FOOD metroNIDAZOLE 0.75 % cream APPLY TOPICALLY TWICE DAILY NEEDED - APPLY TO AFFECTED AREA ON FACE NEEDED FOR RASH Calcium-Cholecalciferol, D3, 600-125 mg-unit tab Take by mouth. ascorbic acid (VITAMIN C ORAL) Take by mouth. CALCIUM CARBONATE/VITAMIN D3 (CALCIUM 600 + D ORAL) Take by mouth twice daily. VIT/IRON FUM/FOLIC AC ( VITAMIN ORAL) Take by mouth. Multivitamin capsule Take 1 capsule by mouth once daily. (Patient not taking: Reported on 02/26/2021 ) medroxyPROGESTERone (DEPO-PROVERA) 150 mg/mL Syrg Inject 1 mL intramuscularly every 12 weeks. (Patient not taking: Reported on 02/26/2021 ) FAMILY HISTORY Problem Relation Age of Onset Diabetes Father age 47 year. type 1 [place] other (arrythemia [Other]) Father Diabetes Paternal Uncle other (eye problems [Other]) Other maternal side other (congestive heart failure [Other]) Maternal Grandfather other (renal cancer [Other]) Maternal Grandfather Hypertension Mother Glaucoma Mother Asthma Brother Social History Tobacco Use Smoking status: Never Smokeless tobacco: Never Substance Use Topics Alcohol use: No Drug use: No ASSESSMENT/PLAN: 1. Sore throat - ICD9: 462, ICD10: J02.9 - STREP A MOLECULAR (POC)- neg Just over the counter medication at this time. . Potential red flag symptoms discussed with the patient. Reviewed appropriate action plan to take if red flag symptoms occur. Patient agreeable to treatment plan. Hemanth Denny APRN.CNP documented in this encounter [facility] Progress note 02-24-2024 Note Date & Type Note Facility 02-24-2024 Note HNO ID: [id number] Author: AMANUEL GR APRN.CNP Service: ? Author Type: Nurse Practitioner Type: Progress Notes Filed: 02/24/2024 07:48 Note Text: Subjective HPI HPI Emeli Mcintyre is a 33 year old female who presents today for CC of painful rash right arm. This started 2 days ago. Has tried nothing for relief. Symptoms are worsened by nothing. Risk factors hx of shingles. Denies chronic disease. Denies possibility of being . .Patient presents with: Rash: Painful rash on right arm x 5 days PAST MEDICAL HISTORY Diagnosis Date Impetigo Lactose intolerance MRSA (methicillin resistant staph aureus) culture positive PMH - PAST MEDICAL HISTORY OF 07/22/07 normal color vision PAST SURGICAL HISTORY Procedure Laterality Date EXTRACTION, ERUPTED TOOTH OR EXPOSED ROOT (ELEVATION AND/OR FORCEPS REMOVAL) 05/19/2010 [place] teeth ALLERGIES Bactrim [Sulfamethoxazole] and Clindamycin MEDICATIONS doxycycline monohydrate 100 mg tablet TAKE 1 TABLET BY MOUTH TWICE DAILY - TAKE WITH FOOD metroNIDAZOLE 0.75 % cream APPLY TOPICALLY TWICE DAILY NEEDED - APPLY TO AFFECTED AREA ON FACE NEEDED FOR RASH Calcium-Cholecalciferol, D3, 600-125 mg-unit tab Take by mouth. ascorbic acid (VITAMIN C ORAL) Take by mouth. VIT/IRON FUM/FOLIC AC ( VITAMIN ORAL) Take by mouth. Multivitamin capsule Take 1 capsule by mouth once daily. (Patient not taking: Reported on 02/26/2021 ) medroxyPROGESTERone (DEPO-PROVERA) 150 mg/mL Syrg Inject 1 mL intramuscularly every 12 weeks. (Patient not taking: Reported on 02/26/2021 ) CALCIUM CARBONATE/VITAMIN D3 (CALCIUM 600 + D ORAL) Take by mouth twice daily. FAMILY HISTORY Problem Relation Age of Onset Diabetes Father age 47 year. type 1 ME other (arrythemia [Other]) Father Diabetes Paternal Uncle other (eye problems [Other]) Other maternal side other (congestive heart failure [Other]) Maternal Grandfather other (renal cancer [Other]) Maternal Grandfather Hypertension Mother Glaucoma Mother Asthma Brother Social History Tobacco Use Smoking status: Never Smokeless tobacco: Never Substance Use Topics Alcohol use: No Drug use: No Review of Systems Constitutional: Negative for fever and malaise/fatigue. Objective Blood pressure 112/78, pulse 76, temperature 36.4 ?C (97.6 ?F), temperature source Tympanic, resp. rate 18, weight 66 kg (145 lb 8.1 oz), last menstrual period 07/05/2017, SpO2 98%, unknown if currently . Physical Exam Constitutional: General: She is not in acute distress. Appearance: She is not toxic-appearing or diaphoretic. HENT: Head: Normocephalic and atraumatic. Pulmonary: Effort: Pulmonary effort is normal. No accessory muscle usage or respiratory distress. Skin: Neurological: Mental Status: She is alert and oriented to person, place, and time. ASSESSMENT/PLAN: 1. Herpes zoster without complication - ICD9: 053.9, ICD10: B02.9 Treat with valtrex Discussed contagiousness F/u with pcp for worsening or continued s/s. - VALACYCLOVIR 1 GRAM TABLET Amanuel Gr APRN.GEOVANNA [facility] History of Present illness Narrative 02-24-2024 Amanuel Gr APRN.GEOVANNA - 02/24/2024 7:40 AM EDT Note Date & Type Note Facility 02-24-2024 History of Presen t illness Narrative Images from the original note were not included. Subjective HPI HPI Emeli Mcintyre is a 33 year old female who presents today for CC of painful rash right arm. This started 2 days ago. Has tried nothing for relief. Symptoms are worsened by nothing. Risk factors hx of shingles. Denies chronic disease. Denies possibility of being . .Patient presents with: Rash: Painful rash on right arm x 5 days PAST MEDICAL HISTORY Diagnosis Date Impetigo Lactose intolerance MRSA (methicillin resistant staph aureus) culture positive PMH - PAST MEDICAL HISTORY OF 07/22/07 normal color vision PAST SURGICAL HISTORY Procedure Laterality Date EXTRACTION, ERUPTED TOOTH OR EXPOSED ROOT (ELEVATION AND/OR FORCEPS REMOVAL) 05/19/2010 [place] teeth ALLERGIES Bactrim [Sulfamethoxazole] and Clindamycin MEDICATIONS doxycycline monohydrate 100 mg tablet TAKE 1 TABLET BY MOUTH TWICE DAILY - TAKE WITH FOOD metroNIDAZOLE 0.75 % cream APPLY TOPICALLY TWICE DAILY NEEDED - APPLY TO AFFECTED AREA ON FACE NEEDED FOR RASH Calcium-Cholecalciferol, D3, 600-125 mg-unit tab Take by mouth. ascorbic acid (VITAMIN C ORAL) Take by mouth. VIT/IRON FUM/FOLIC AC ( VITAMIN ORAL) Take by mouth. Multivitamin capsule Take 1 capsule by mouth once daily. (Patient not taking: Reported on 02/26/2021 ) medroxyPROGESTERone (DEPO-PROVERA) 150 mg/mL Syrg Inject 1 mL intramuscularly every 12 weeks. (Patient not taking: Reported on 02/26/2021 ) CALCIUM CARBONATE/VITAMIN D3 (CALCIUM 600 + D ORAL) Take by mouth twice daily. FAMILY HISTORY Problem Relation Age of Onset Diabetes Father age 47 year. type 1 [place] other (arrythemia [Other]) Father Diabetes Paternal Uncle other (eye problems [Other]) Other maternal side other (congestive heart failure [Other]) Maternal Grandfather other (renal cancer [Other]) Maternal Grandfather Hypertension Mother Glaucoma Mother Asthma Brother Social History Tobacco Use Smoking status: Never Smokeless tobacco: Never Substance Use Topics Alcohol use: No Drug use: No Review of Systems Constitutional: Negative for fever and malaise/fatigue. Objective Blood pressure 112/78, pulse 76, temperature 36.4 C (97.6 F), temperature source Tympanic, resp. rate 18, weight 66 kg (145 lb 8.1 oz), last menstrual period 07/05/2017, SpO2 98%, unknown if currently . Physical Exam Constitutional: General: She is not in acute distress. Appearance: She is not toxic-appearing or diaphoretic. HENT: Head: Normocephalic and atraumatic. Pulmonary: Effort: Pulmonary effort is normal. No accessory muscle usage or respiratory distress. Skin: Neurological: Mental Status: She is alert and oriented to person, place, and time. ASSESSMENT/PLAN: 1. Herpes zoster without complication - ICD9: 053.9, ICD10: B02.9 Treat with valtrex Discussed contagiousness F/u with pcp for worsening or continued s/s. - VALACYCLOVIR 1 GRAM TABLET Amanuel Gr APRN.FINISH SANDER documented in this encounter [facility] Clinical Note 08-20-2022 Note Date & Type Note Facility 08-20-2022 Note [facility] Work Phone: Pap Smear Specimen Adequacy August 20, 2022 12:46pm Comment . Satisfactory for evaluation. Endocervical and/or squamous metaplasticcells (endocervical component) are present. Comment on above: Satisfactory for andrey luation. Endocervical and/or squamous metaplasticcells (endocervical component) are present. Evaluation note Note Date & Type Note Facility Evaluation note No assessment information availa ble [facility] Work Phone: Evaluation note Note Date & Type Note Facility Evaluation note Diagnosis Herpes zoster without complication- Primary Herpes zoster without mention of complication documented in this encounter [facility] Evaluation note Note Date & Type Note Facility Evaluation note Diagnosis Sore throat- Primary Acute pharyngitis documented in this encounter [facility] Instructions Note Date & Type Note Facility Instructions Name Instructions not documented [facility] [address] Work Phone: Reason for referral (narrative) Note Date & Type Note Facility Reason for referral (narrative) No reason for referral information available [facility] Work Phone: Summary Purpose Family History No Family History Records FoundUnknown Family Member Name Dates Details Family history of hypertensi on(V17.49, Z82.49) Comments:Other Status:Active Family history of mental dis order(V17.0, Z81.8) Comments:Other Status:Active Family history of diabetes m ellitus(V18.0, Z83.3) Comments:Other Status:Active Child Name Dates Details Family history of Healthy ch ild Status:Active Mother Name Dates Details Family history of LTG (low t ension glaucoma)(365.12, H40.1290) Status:Active Father Name Dates Details Family history of Controlled type 2 diabetes mellitus with stage 3 chronic kidney disease, without long-term current use of insulin(250.40, E11.22) Status:Active Brother Name Dates Details Family history of Healthy ad ult Status:Active Unknown Family Member Name Dates Details Family history of hypertensi on(V17.49, Z82.49) Comments:Other Status:Active Family history of mental dis order(V17.0, Z81.8) Comments:Other Status:Active Family history of diabetes m ellitus(V18.0, Z83.3) Comments:Other Status:Active Child Name Dates Details Family history of Healthy ch ild Status:Active Mother Name Dates Details Family history of LTG (low t ension glaucoma)(365.12, H40.1290) Status:Active Father Name Dates Details Family history of Controlled type 2 diabetes mellitus with stage 3 chronic kidney disease, without long-term current use of insulin(250.40, E11.22) Status:Active Brother Name Dates Details Family history of Healthy ad ult Status:Active Unknown Family Member Name Dates Details Family history of hypertensi on(V17.49, Z82.49) Comments:Other Status:Active Family history of mental dis order(V17.0, Z81.8) Comments:Other Status:Active Family history of diabetes m ellitus(V18.0, Z83.3) Comments:Other Status:Active Child Name Dates Details Family history of Healthy ch ild Status:Active Mother Name Dates Details Family history of LTG (low t ension glaucoma)(365.12, H40.1290) Status:Active Father Name Dates Details Family history of Controlled type 2 diabetes mellitus with stage 3 chronic kidney disease, without long-term current use of insulin(250.40, E11.22) Status:Active Brother Name Dates Details Family history of Healthy ad ult Status:Active Unknown Family Member Name Dates Details Family history of hypertensi on(V17.49, Z82.49) Comments:Other Status:Active Family history of mental dis order(V17.0, Z81.8) Comments:Other Status:Active Family history of diabetes m ellitus(V18.0, Z83.3) Comments:Other Status:Active Child Name Dates Details Family history of Healthy ch ild Status:Active Mother Name Dates Details Family history of LTG (low t ension glaucoma)(365.12, H40.1290) Status:Active Father Name Dates Details Family history of Controlled type 2 diabetes mellitus with stage 3 chronic kidney disease, without long-term current use of insulin(250.40, E11.22) Status:Active Brother Name Dates Details Family history of Healthy ad ult Status:Active Unknown Family Member Name Dates Details Family history of hypertensi on(V17.49, Z82.49) Comments:Other Status:Active Family history of mental dis order(V17.0, Z81.8) Comments:Other Status:Active Family history of diabetes m ellitus(V18.0, Z83.3) Comments:Other Status:Active Child Name Dates Details Family history of Healthy ch ild Status:Active Mother Name Dates Details Family history of LTG (low t ension glaucoma)(365.12, H40.1290) Status:Active Father Name Dates Details Family history of Controlled type 2 diabetes mellitus with stage 3 chronic kidney disease, without long-term current use of insulin(250.40, E11.22) Status:Active Brother Name Dates Details Family history of Healthy ad ult Status:Active Advance Directives No Advanced Directives Records FoundDocuments on File Type Date Recorded 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 - Neurology [address] [place] [address] [phone] Nerve Conduction & EMG Report Patient: Emeli Mcintyre Sex: Female Date of : 1990 Visit Date: 08/01/2020 07:14 Age: 30 Years Examining MD: Miriam Hope MD Referred by: Dr. Naranjo Temperature: 32.2 .Current Height: 5 feet 6 inch Referred for: BUE pain and parsetehsias for 2 months. + neck pain. No DM. Plan: This study is design to evaluate for entrapment neuropathy, median or ulnar neuropathy, radiculopathy, or brachial plexopathy. Procedure indication, side effects, complications, risk and alternatives were explain. Patient agreed to proceed with verbal consent obtain. Patient was instructed toclean the puncture site with soap and water and put some ice pack for bruising. EMG Summary: The bilateral median and ulnar motor and sensory nerve conduction studies were normal.The bilateral radial sensory nerve conduction studies were also normal. Needle EMG of the tested muscle showed no abnormal spontaneous activity. Normal motor unit action potentials and recruitment patterns were seen. Impression: This is a normal EMG. There is NO clear electrodiagnostic evidence of a bilateral cervical radiculopathy, brachial plexopathy, entrapment neuropathy, median or ulnar neuropathy at this time. Miriam Hope MD Diplomate, ABPN, NBPAS Clinical Neurophysiology, Neurology, Vascular Neurology and Sleep Medicine [facility] [place] [phone] Chelsey urias: Portions of this chart was created using [employer] voice recognition software. Occasional wrong-word or sound-like substitutions may have occurred due to inherent limitations of the voice recognition software. Please read the chart carefully and recognize, using context, where the substitutions have occurred. Motor NCS Nerve / Sites Muscle Latency Amplitude Distance Velocity ms mV cm m/s R Median - APB Wrist APB 3.56 8.2 7 Elbow APB 6.88 6.8 22 66.4 L Median - APB Wrist APB 3.04 14.5 7 Elbow APB 6.42 13.0 20.5 60.7 R Ulnar - . Wrist ADM 3.00 11.0 6.5 B.Elbow ADM 6.08 12.7 20 64.9 A.Elbow ADM 7.77 13.5 10 59.3 L Ulnar - . Wrist ADM 2.65 13.0 6.5 B.Elbow ADM 6.04 12.6 22 64.8 A.Elbow ADM 8.02 12.6 11 55.6 Sensory NCS Nerve / Sites Rec. Site Peak Lat Amp.1 Amp.2 Distance Benigno. d Lat.2 ms V V cm m/s ms R Radial - . Forearm Snuff 2.00 34.3 68.9 10 66.7 L Radial - . Forearm Snuff 2.13 36.8 57.2 10 60.8 R Median, Ulnar - PALMAR Median Palm Wrist 1.98 54.7 90.6 8 52.6 Ulnar Palm Wrist 1.92 21.6 28.5 8 56.5 0.06 L Median, Ulnar - PALMAR Median Palm Wrist 1.71 55.8 89.1 8 61.9 Ulnar Palm Wrist 1.73 36.0 51.7 8 61.9 -0.02 EMG Summary Table Spontaneous Activity Amplitude Duration Recruitment Activation Polyphasia Comment Muscle Nerve Roots Ins Act Fib PSW Fasc - - - - - - L. Deltoid Axillary C5-C6 Normal 0 0 0 Normal Normal Normal Normal Normal Normal L. Triceps brachii Radial C6-C8 Normal 0 0 0 Normal Normal Normal Normal Normal Normal L. Biceps brachii Musculocutaneous C5-C6 Normal 0 0 0 Normal Normal Normal Normal Normal Normal L. Pronator teres Median C6-C7 Normal 0 0 0 Normal Normal Normal Normal Normal Normal L. Extensor digitorum communis Radial C7-C8 Normal 0 0 0 Normal Normal Normal Normal Normal Normal L. First dorsal interosseous Ulnar C8-T1 Normal 0 0 0 Normal Normal Normal Normal Normal Normal L. Abductor pollicis brevis Median C8-T1 Normal 0 0 0 Normal Normal Normal Normal Normal Normal L. Cervical paraspinals Spinal C4-C8 Normal 0 0 0 Normal Normal Normal Normal Normal Normal R. Deltoid Axillary C5-C6 Normal 0 0 0 Normal Normal Normal Normal Normal Normal R. Triceps brachii Radial C6-C8 Normal 0 0 0 Normal Normal Normal Normal Normal Normal R. Biceps brachii Musculocutaneous C5-C6 Normal 0 0 0 Normal Normal Normal Normal Normal Normal R. Pronator teres Median C6-C7 Normal 0 0 0 Normal Normal Normal Normal Normal Normal R. Extensor digitorum communis Radial C7-C8 Normal 0 0 0 Normal Normal Normal Normal Normal Normal R. First dorsal interosseous Ulnar C8-T1 Normal 0 0 0 Normal Normal Normal Normal Normal Normal R. Abductor pollicis brevis Median C8-T1 Normal 0 0 0 Normal Normal Normal Normal Normal Normal R. Cervical paraspinals Spinal C4-C8 Normal 0 0 0 Normal Normal Normal Normal Normal Normal documented in this encounter Assessments Diagnosis Bilateral wrist pain Hospital Course Note Therapy Diagnosis Assessed P ain in both wrists (719.43) (M25.531,M25.532) Plan Goals: Goals set and discussed today. 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 LTG: Pt will demo overall decreased B wrist pain with no more than average 2/10 pain rating on daily basis in order to return to PLOF. 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 08/16: progressing 5/5 for B wrist flexion, 4+/5 B supination however no increased pain STG: Pt will demo improved AROM LUE wrist extension by 15' for improved functional use of LUE (more content not included)... Chief Complaint and Reason for Visit Chief Complaint Admit Date SKIN March 14, 2025 1:5 8pm Additional Source Comments INFORMATION SOURCE (unrecogn ized section and content) DATE CREATED AUTHOR 12/08/2019 [facility] DATE CREATED AUTHOR AUTHOR'S ORGANIZ ATION 08/01/2020 [facility] DATE CREATED AUTHOR AUTHOR'S ORGANIZ ATION 08/17/2020 [employer] DATE CREATED AUTHOR AUTHOR'S ORGANIZ ATION 08/18/2020 [facility] DATE CREATED AUTHOR AUTHOR'S ORGANIZ ATION 05/27/2022 [facility] DATE CREATED AUTHOR AUTHOR'S ORGANIZ ATION 08/31/2024 [facility] DATE CREATED AUTHOR AUTHOR'S ORGANIZ ATION 04/30/2025 [facility] DATE CREATED AUTHOR AUTHOR'S ORGANIZ ATION 06/25/2025 [facility] Reason for Visit (unrecogniz ed section and content) Status Reason Specialty Diagnoses / Procedures Referred By Contact Referred To Contact Closed Specialty Services Required/Patient' s Best Interest Neurology Diagnoses Bilateral wrist pain System, Provider Not In HopeMiriam MD [facility] [place] [address] Reason Comments Rash Painful rash on righ t arm x 5 days Reason Comments Ear Pain Left ear pain and so re throat x 1 day Goals (unrecognized section and content) Goals may be documented in a n alternate sectionGoals may be documented in an alternate sectionGoals may be documented in an alternate section Source Comments (unrecognize d section and content) In the event this informatio n is protected by the Federal Confidentiality of Alcohol and Drug Abuse Patient Records regulations: The Federal rules restrict any use of the information to criminally investigate or prosecute any alcohol or drug abuse patient.[facility] the event this information is protected by the Federal Confidentiality of Alcohol and Drug Abuse Patient Records regulations: The Federal rules restrict any use of the information to criminally investigate or prosecute any alcohol or drug abuse patient.[facility] Care Teams (unrecognized sec tion and content) Team Status: Active Member Role Status Dates No Primary Care Physician Family Provider Active No Primary Care Physician Primary Care Provider Active Team Status: Inactive Member Role Status Dates No Primary Care Physician Primary Care Provider Active Start: March 14, 2025 End: March 14, 2025 Dr. Heather Zafar MD Attending Provider Active S tart: March 14, 2025 End: March 14, 2025 Dr. Heather Zafar MD Referring Provider Active S tart: March 14, 2025 End: March 14, 2025 FOR RECORDS PERTAINING TO PATIENTS WHO ARE OR HAVE BEEN ENROLLED IN A CHEMICAL DEPENDENCY/SUBSTANCEABUSE PROGRAM, SOME INFORMATION MAY BE OMITTED. This clinical summary was aggregated from multiple sources. Caution should be exercised in using it in the provision of clinical care. This summary normalizes information from multiple sources, and as a consequence, information in this document may materially change the coding, format and clinical context of patient data. In addition, data may be omitted in some cases. CLINICAL DECISIONS SHOULD BE BASED ON THE PRIMARY CLINICAL RECORDS. [employer] provides no warranty or guarantee of the accuracy or completeness of information in this document.
[2025-06-26 00:10] VITALS: O2SAT 99
[2025-06-26 00:14] LABS: Hematocrit 41.9 % (37-47); Hemoglobin 14.4 g/dL (12.0-15.0); Immature Granulocytes Count 0.040 X10^3/uL (0.0-0.0); Mean Corp Hgb Conc 34.4 g/dL (32-36); Mean Corpuscular Volume 95.7 fL (81-99); Mean Platelet Vol. 10.5 fl (6.2-12.0); NRBC Flagged by Analyzer 0 % (0-5); Platelet Count 192 K/mm3 (150-450); RBC Distribution Width CV 12.1 % (11.6-14.6); RBC Distribution Width SD 42.5 fl (35.1-43.9); Red Blood Count 4.38 M/mm3 (4.2-5.4); White Blood Count 8.8 K/mm3 (4.4-11.0)
[2025-06-26 00:26] LABS: Prothrombin Time (Protime)PT. 13.1 SECONDS (11.7-14.9)
[2025-06-26 00:27] LABS: Partial Thromboplast Time 28.0 Seconds (24.1-36.2)
[2025-06-26 00:39] VITALS: BP 114/56; PULSE 70; RESP 15; TEMP 36.6; O2SAT 100
[2025-06-26 01:21] LABS: Troponin T High Sensitivity < 6 ng/L (<=14)
[2025-06-26 01:25] LABS: Anion Gap 14 (5-15); BUN 13 mg/dL (4-19); BUN/Creat Ratio 18.9 RATIO (10-20); Calcium,Total 9.2 mg/dL (7.6-11.0); Carbon Dioxide 20.8 mmol/L (21.0-32.0); Chloride 103 mmol/L (98-108); Estimated Creatinine Clearance 105.01 ml/min (50-250); Glucose 94 mg/dL (70-99); Potassium 4.3 mmol/L (3.3-5.1)
[2025-06-26 01:32] VITALS: BP 116/79; PULSE 69; RESP 16; O2SAT 98
[2025-06-26] MEDS: 0.9% Normal Saline (1000mL) 1,000 ML 999 ML IV (02:11)
[2025-06-26 03:00] VITALS: PULSE 58; RESP 19; O2SAT 98
[2025-06-26 04:04] VITALS: BP 95/82; PULSE 67; RESP 18; TEMP 36.8; O2SAT 99
== END 2025-06-26 04:07 | disposition home or self-care (01) ==
PROVIDERS: Emergency Provider Emergency Medicine; Visit Provider Emergency Medicine
DX: R20.0 Anesthesia of skin (principal); L50.9 Urticaria, unspecified; E87.8 Other disorders of electrolyte and fluid balance, not elsewhere classified
CPT/HCPCS: 70496; 70498; 80048; 84484; 85025; 85610; 85730; 93005; 96361; 96374; 99284; Q9967; A4216